=== PATIENT | male | born 1935 | race Caucasian/White ===

== ENCOUNTER 2017-10-18 17:20 | Inpatient (IN) ==
[2017-10-18 18:32] LABS: Basophils % 0.3 % (0.0-0.8); Eosinophils # 0.1 10*3/uL (0.0-0.87); Eosinophils % 0.8 % (0.00-10.9); Hematocrit 34.1 VOL% (42.0-52.0); Hemoglobin 10.4 GM/DL (14.0-18.0); Immature Granulocytes % 0.4 %; Immature Granulocytes Absolute 0.05 #; Lymphocytes % 8.4 % (21.2-54.2); Mean Corpuscular HGB Conc 30.5 GM/DL (32-36); Mean Corpuscular Hemoglobin 26 PG (27-34); Mean Corpuscular Volume 84.6 FL (87-102); Mean Platelet Volume 10.3 FL (9.6-12.0); Monocytes # 0.8 10*3/uL (0.11-0.8); Monocytes % 6.5 % (1.7-12.7); Neutrophils % 83.6 % (38.7-73.9); Platelet Count 346 T/CUMM (130-400); Red Blood Count 4.03 MC/CUMM (3.8-5.5); Red Cell Distribution Width 20.1 % (9.3-17.3); White Blood Count 11.9 T/CUMM (4-12)
[2017-10-18 18:41] LABS: Ammonia 23 UMOL/L (11-32)
[2017-10-18 18:43] LABS: Lactic Acid 1.9 MMOL/L (0.4-2.0)
[2017-10-18 18:45] LABS: Alanine Aminotransferase 16 U/L (16-61); Albumin 3.2 G/DL (3.4-5.0); Alkaline Phosphatase 106 U/L (45-117); Aspartate Amino Transferase 15 U/L (0-37); Blood Urea Nitrogen 27 MG/DL (7-18); Calcium 8.3 MG/DL (8.5-10.1); Glucose 116 MG/DL (74-106); Magnesium 2.5 MG/DL (1.8-2.4); Osmolality,Calculated 284.4 MOS/KG (273-304); Potassium 4.4 MMOL/L (3.5-5.1); Sodium 140 MMOL/L (136-145); Total Protein 6.6 G/DL (6.4-8.3); Troponin I Only < 0.015 NG/ML (0.00-0.045)
[2017-10-18] MEDS ORDERED: cefTRIAXone 1,000 MG in SODIUM CHLORIDE 0.9% 100 ML IV STA (18:53)
[2017-10-18] MEDS ORDERED: ONDANSETRON 4 MG/2 ML VIAL IV STA (18:53)
[2017-10-18] MEDS ORDERED: FUROSEMIDE 100 MG/10 ML VIAL IV STA (18:53)
[2017-10-18] MEDS ORDERED: SODIUM CHLORIDE 0.9% 500 ML IV STA (18:53)
[2017-10-18] MEDS ORDERED: methylPREDNISolone SOD SUC 125 MG/2 ML VIAL IV STA (18:53)
[2017-10-18] MEDS ORDERED: ALBUTEROL 2.5 MG/3 ML NEB RESP TX SCH (19:00)
[2017-10-18] MEDS ORDERED: ONDANSETRON 4 MG/2 ML VIAL ONE (19:04)
[2017-10-18] MEDS ORDERED: cefTRIAXone 1,000 MG VIAL ONE (19:04)
[2017-10-18] MEDS ORDERED: FUROSEMIDE 40 MG/4 ML VIAL ONE (19:04)
[2017-10-18] MEDS ORDERED: methylPREDNISolone SOD SUC 125 MG/2 ML VIAL ONE (19:05)
[2017-10-18] MEDS ORDERED: SODIUM CHLORIDE 0.9% 100 ML IV ONE (19:05)
[2017-10-18 19:37] LABS: ABG Base Excess -1.4 MMOL/L (-2.5-2.5); ABG HCO3 23.3 MMOL/L (20-26); ABG Oxygen Saturation 97.3 % (95-100); ABG PCO2 36.9 MM HG (35-48); ABG PH 7.403 (7.35-7.45); ABG TCO2 20.5 MMOL/L (23-27)
[2017-10-18] MEDS ORDERED: MORPHINE 2 MG/1 ML SYRINGE IV PRN (20:03)
[2017-10-18] MEDS ORDERED: ACETAMINOPHEN 325 MG TABLET PO PRN (20:03)
[2017-10-18] MEDS ORDERED: ONDANSETRON 4 MG/2 ML VIAL IV PRN (20:03)
[2017-10-18] MEDS: SODIUM CHLORIDE 0.9% 1,000 ML IV SCH (20:31)
[2017-10-18] MEDS: APIXABAN 5 MG TABLET PO SCH (20:31)
[2017-10-18] MEDS: CLORAZEPATE 3.75 MG TABLET PO SCH (20:32)
[2017-10-18] MEDS: DOCUSATE SODIUM 100 MG CAPSULE PO SCH (20:32)
[2017-10-18] MEDS ORDERED: LEVOFLOXACIN INJ 500 MG in PREMIX 1 EACH IV ONE (21:00)
[2017-10-18] MEDS: ALBUTEROL/IPRATROPIUM 3 ML NEB RESP TX PRN (21:28)
[2017-10-18 22:33] LABS: Troponin I Only < 0.015 NG/ML (0.00-0.045)
[2017-10-19] MEDS: ALBUTEROL/IPRATROPIUM 3 ML NEB RESP TX PRN ×2 (00:31→03:19)
[2017-10-19] MEDS: methylPREDNISolone SOD SUC 40 MG/1 ML VIAL IV SCH ×3 (03:56→21:14)
[2017-10-19 05:10] LABS: Hematocrit 30.5 VOL% (42.0-52.0); Hemoglobin 8.9 GM/DL (14.0-18.0); Immature Granulocytes % 0.6 %; Immature Granulocytes Absolute 0.05 #; Lymphocytes # 0.3 10*3/uL (1.4-4.0); Lymphocytes % 4.2 % (21.2-54.2); Mean Corpuscular HGB Conc 29.2 GM/DL (32-36); Mean Corpuscular Hemoglobin 25 PG (27-34); Mean Corpuscular Volume 86.9 FL (87-102); Monocytes # 0.1 10*3/uL (0.11-0.8); Monocytes % 1.2 % (1.7-12.7); Neutrophils # 7.6 10*3/uL (1.4-7.4); Platelet Count 287 T/CUMM (130-400); Red Blood Count 3.51 MC/CUMM (3.8-5.5); Red Cell Distribution Width 19.8 % (9.3-17.3); White Blood Count 8.1 T/CUMM (4-12)
[2017-10-19 05:45] LABS: Albumin 2.5 G/DL (3.4-5.0); Bilirubin,Total 1.2 MG/DL (0.2-1.0); Calcium 7.9 MG/DL (8.5-10.1); Magnesium 2.3 MG/DL (1.8-2.4); Osmolality,Calculated 288.4 MOS/KG (273-304); Potassium 4.3 MMOL/L (3.5-5.1); Total Protein 5.8 G/DL (6.4-8.3)
[2017-10-19 05:50] LABS: Giant Platelets Few; Hypochromasia 1+; Lymphocytes 4 % (20-55); Ovalocytes Slight; Platelet Estimate Adequate; Segmented Neutrophils 95 % (50-85); Total Cells Counted 100
[2017-10-19 05:51] LABS: Microcytosis Slight
[2017-10-19] MEDS: ALBUTEROL/IPRATROPIUM 3 ML NEB RESP TX SCH ×3 (07:50→19:09)
[2017-10-19] MEDS ORDERED: NON-FORMULARY MEDICATION (Umeclidinium Brm/Vilanterol Tr [Anoro Ellipta] 1 PUFF) INH SCH (09:00)
[2017-10-19] MEDS: DOCUSATE SODIUM 100 MG CAPSULE PO SCH ×2 (10:36→21:13)
[2017-10-19] MEDS: ASPIRIN EC 81 MG TABLET PO SCH (10:36)
[2017-10-19] MEDS: VERAPAMIL SR 240 MG TABLET PO SCH (10:37)
[2017-10-19] MEDS: PANTOPRAZOLE 40 MG TABLET PO SCH (10:37)
[2017-10-19] MEDS: metOLazone 5 MG TABLET PO SCH (10:37)
[2017-10-19] MEDS: APIXABAN 5 MG TABLET PO SCH ×2 (10:38→21:14)
[2017-10-19] MEDS: FERROUS SULFATE 325 MG TABLET PO SCH (10:38)
[2017-10-19] MEDS: CLORAZEPATE 3.75 MG TABLET PO SCH ×2 (10:38→21:14)
[2017-10-19] MEDS: FUROSEMIDE 20 MG TABLET PO SCH (10:38)
[2017-10-19] MEDS: FUROSEMIDE 20 MG/2 ML VIAL IV SCH ×2 (10:39→16:04)
[2017-10-19] MEDS ORDERED: TUBERCULIN SKIN TEST 0.1 ML SYRINGE INTRADERM ONE (15:02)
[2017-10-19] MEDS: LEVOFLOXACIN INJ 250 MG in PREMIX 1 EACH IV SCH (21:18)
[2017-10-19] MEDS: SODIUM CHLORIDE 0.9% 1,000 ML IV SCH (21:21)
[2017-10-20] MEDS: cefTRIAXone 1,000 MG in SYRINGE 1 EACH IV SCH ×2 (00:01→19:25)
[2017-10-20] MEDS: ALBUTEROL/IPRATROPIUM 3 ML NEB RESP TX SCH ×4 (01:25→21:24)
[2017-10-20] MEDS: methylPREDNISolone SOD SUC 40 MG/1 ML VIAL IV SCH ×3 (04:14→23:02)
[2017-10-20 04:32] LABS: ABG HCO3 26.8 MMOL/L (20-26); ABG Oxygen Saturation 92.4 % (95-100); ABG PCO2 42.7 MM HG (35-48); ABG PH 7.415 (7.35-7.45); ABG PO2 69.9 MM HG (80-95); ABG TCO2 28.1 MMOL/L (23-27); Allen Test Positive
[2017-10-20 05:06] LABS: Basophils % 0.1 % (0.0-0.8); Hematocrit 31.4 VOL% (42.0-52.0); Hemoglobin 9.2 GM/DL (14.0-18.0); Immature Granulocytes Absolute 0.14 #; Lymphocytes # 0.4 10*3/uL (1.4-4.0); Lymphocytes % 2.9 % (21.2-54.2); Mean Corpuscular HGB Conc 29.3 GM/DL (32-36); Mean Corpuscular Hemoglobin 25 PG (27-34); Mean Platelet Volume 9.9 FL (9.6-12.0); Monocytes # 0.3 10*3/uL (0.11-0.8); Monocytes % 2.4 % (1.7-12.7); Neutrophils % 93.6 % (38.7-73.9); Platelet Count 324 T/CUMM (130-400); Red Blood Count 3.65 MC/CUMM (3.8-5.5); Red Cell Distribution Width 19.2 % (9.3-17.3); White Blood Count 13.8 T/CUMM (4-12)
[2017-10-20 05:40] LABS: Calcium 8.3 MG/DL (8.5-10.1); Magnesium 2.3 MG/DL (1.8-2.4); Osmolality,Calculated 290.5 MOS/KG (273-304); Potassium 3.6 MMOL/L (3.5-5.1)
[2017-10-20 08:05] LABS: Lymphocytes 2 % (20-55); Segmented Neutrophils 94 % (50-85); Total Cells Counted 100
[2017-10-20 08:06] LABS: Hypochromasia 1+
[2017-10-20 08:08] LABS: Anisocytosis 1+; Microcytosis 1+; Platelet Estimate Normal
[2017-10-20] MEDS: APIXABAN 5 MG TABLET PO SCH ×2 (10:04→22:03)
[2017-10-20] MEDS: VERAPAMIL SR 240 MG TABLET PO SCH (10:04)
[2017-10-20] MEDS: CLORAZEPATE 3.75 MG TABLET PO SCH ×2 (10:05→22:03)
[2017-10-20] MEDS: metOLazone 5 MG TABLET PO SCH (10:05)
[2017-10-20] MEDS: FERROUS SULFATE 325 MG TABLET PO SCH (10:06)
[2017-10-20] MEDS: DOCUSATE SODIUM 100 MG CAPSULE PO SCH ×2 (10:06→22:03)
[2017-10-20] MEDS: ASPIRIN EC 81 MG TABLET PO SCH (10:06)
[2017-10-20] MEDS: PANTOPRAZOLE 40 MG TABLET PO SCH (10:06)
[2017-10-20] MEDS: FUROSEMIDE 20 MG/2 ML VIAL IV SCH (10:07)
[2017-10-20] MEDS: SODIUM CHLORIDE 0.9% 1,000 ML IV SCH (14:54)
[2017-10-20] MEDS: FUROSEMIDE 20 MG TABLET PO SCH (14:54)
[2017-10-20] MEDS: FUROSEMIDE 40 MG/4 ML VIAL IV SCH (18:32)
[2017-10-20] MEDS: LEVOFLOXACIN INJ 250 MG in PREMIX 1 EACH IV SCH (22:04)
[2017-10-21] MEDS: ALBUTEROL/IPRATROPIUM 3 ML NEB RESP TX SCH ×4 (04:20→19:26)
[2017-10-21 04:41] LABS: Basophils % 0.1 % (0.0-0.8); Hematocrit 31.4 VOL% (42.0-52.0); Hemoglobin 9.7 GM/DL (14.0-18.0); Immature Granulocytes % 0.8 %; Immature Granulocytes Absolute 0.12 #; Lymphocytes # 0.4 10*3/uL (1.4-4.0); Lymphocytes % 2.3 % (21.2-54.2); Mean Corpuscular HGB Conc 30.9 GM/DL (32-36); Mean Corpuscular Hemoglobin 26 PG (27-34); Mean Corpuscular Volume 82.6 FL (87-102); Mean Platelet Volume 9.9 FL (9.6-12.0); Monocytes # 0.3 10*3/uL (0.11-0.8); Monocytes % 2.1 % (1.7-12.7); NRBC # 0.02 10*3/uL; Neutrophils # 14.7 10*3/uL (1.4-7.4); Neutrophils % 94.7 % (38.7-73.9); Platelet Count 407 T/CUMM (130-400); Red Cell Distribution Width 19.3 % (9.3-17.3); White Blood Count 15.5 T/CUMM (4-12)
[2017-10-21 05:40] LABS: Elliptocytes Few; Hypochromasia 1+; Lymphocytes 1 % (20-55); Microcytosis 1+; Segmented Neutrophils 97 % (50-85); Target Cells Slight; Total Cells Counted 100
[2017-10-21] MEDS: APIXABAN 5 MG TABLET PO SCH ×2 (10:19→21:45)
[2017-10-21] MEDS: FERROUS SULFATE 325 MG TABLET PO SCH (10:19)
[2017-10-21] MEDS: metOLazone 5 MG TABLET PO SCH (10:19)
[2017-10-21] MEDS: DOCUSATE SODIUM 100 MG CAPSULE PO SCH ×2 (10:19→21:45)
[2017-10-21] MEDS: VERAPAMIL SR 240 MG TABLET PO SCH (10:19)
[2017-10-21] MEDS: PANTOPRAZOLE 40 MG TABLET PO SCH (10:19)
[2017-10-21] MEDS: ASPIRIN EC 81 MG TABLET PO SCH (10:19)
[2017-10-21] MEDS: CLORAZEPATE 3.75 MG TABLET PO SCH ×2 (10:20→21:45)
[2017-10-21] MEDS: FUROSEMIDE 40 MG/4 ML VIAL IV SCH ×2 (10:21→16:50)
[2017-10-21] MEDS: methylPREDNISolone SOD SUC 40 MG/1 ML VIAL IV SCH ×2 (10:21→16:50)
[2017-10-21] MEDS: METOPROLOL TARTRATE 25 MG TABLET PO SCH ×2 (12:39→21:46)
[2017-10-21] MEDS: cefTRIAXone 1,000 MG in SYRINGE 1 EACH IV SCH (18:31)
[2017-10-21] MEDS: LEVOFLOXACIN INJ 250 MG in PREMIX 1 EACH IV SCH (21:46)
[2017-10-22] MEDS: ALBUTEROL/IPRATROPIUM 3 ML NEB RESP TX SCH ×4 (00:47→20:35)
[2017-10-22] MEDS: methylPREDNISolone SOD SUC 40 MG/1 ML VIAL IV SCH ×4 (01:31→21:43)
[2017-10-22 04:58] LABS: Basophils % 0.1 % (0.0-0.8); Hematocrit 35.5 VOL% (42.0-52.0); Hemoglobin 10.7 GM/DL (14.0-18.0); Immature Granulocytes % 0.7 %; Immature Granulocytes Absolute 0.12 #; Lymphocytes # 0.6 10*3/uL (1.4-4.0); Lymphocytes % 3.5 % (21.2-54.2); Mean Corpuscular HGB Conc 30.1 GM/DL (32-36); Mean Corpuscular Hemoglobin 25 PG (27-34); Mean Corpuscular Volume 82.9 FL (87-102); Monocytes # 0.4 10*3/uL (0.11-0.8); NRBC # 0.03 10*3/uL; Neutrophils # 16.1 10*3/uL (1.4-7.4); Neutrophils % 93.7 % (38.7-73.9); Platelet Count 492 T/CUMM (130-400); Red Blood Count 4.28 MC/CUMM (3.8-5.5); White Blood Count 17.2 T/CUMM (4-12)
[2017-10-22 05:30] LABS: Giant Platelets Few; Hypochromasia 1+; Lymphocytes 3 % (20-55); Microcytosis Slight; Platelet Estimate Adequate; Segmented Neutrophils 95 % (50-85); Total Cells Counted 100
[2017-10-22 05:37] LABS: Calcium 8.6 MG/DL (8.5-10.1); Osmolality,Calculated 294.8 MOS/KG (273-304); Potassium 3.5 MMOL/L (3.5-5.1)
[2017-10-22] MEDS: CLORAZEPATE 3.75 MG TABLET PO SCH ×2 (08:37→21:44)
[2017-10-22] MEDS: PANTOPRAZOLE 40 MG TABLET PO SCH (08:38)
[2017-10-22] MEDS: DOCUSATE SODIUM 100 MG CAPSULE PO SCH ×2 (08:38→21:44)
[2017-10-22] MEDS: APIXABAN 5 MG TABLET PO SCH ×2 (08:38→21:44)
[2017-10-22] MEDS: FERROUS SULFATE 325 MG TABLET PO SCH (08:38)
[2017-10-22] MEDS: METOPROLOL TARTRATE 25 MG TABLET PO SCH ×2 (08:38→21:44)
[2017-10-22] MEDS: ASPIRIN EC 81 MG TABLET PO SCH (08:40)
[2017-10-22] MEDS: VERAPAMIL SR 240 MG TABLET PO SCH (08:40)
[2017-10-22] MEDS: FUROSEMIDE 40 MG/4 ML VIAL IV SCH ×2 (08:40→16:50)
[2017-10-22] MEDS: LEVOFLOXACIN INJ 250 MG in PREMIX 1 EACH IV SCH (21:43)
[2017-10-22] MEDS: cefTRIAXone 1,000 MG in SYRINGE 1 EACH IV SCH (21:43)
[2017-10-23] MEDS: ALBUTEROL/IPRATROPIUM 3 ML NEB RESP TX SCH ×4 (01:34→19:34)
[2017-10-23 05:29] LABS: Calcium 9.4 MG/DL (8.5-10.1); Magnesium 2.6 MG/DL (1.8-2.4); Osmolality,Calculated 301.5 MOS/KG (273-304); Potassium 3.7 MMOL/L (3.5-5.1)
[2017-10-23] MEDS: PANTOPRAZOLE 40 MG TABLET PO SCH (08:36)
[2017-10-23] MEDS: FUROSEMIDE 40 MG/4 ML VIAL IV SCH (08:36)
[2017-10-23] MEDS: VERAPAMIL SR 240 MG TABLET PO SCH (08:36)
[2017-10-23] MEDS: APIXABAN 5 MG TABLET PO SCH ×2 (08:36→20:48)
[2017-10-23] MEDS: FERROUS SULFATE 325 MG TABLET PO SCH (08:36)
[2017-10-23] MEDS: CLORAZEPATE 3.75 MG TABLET PO SCH ×2 (08:36→20:48)
[2017-10-23] MEDS: METOPROLOL TARTRATE 25 MG TABLET PO SCH (08:36)
[2017-10-23] MEDS: ASPIRIN EC 81 MG TABLET PO SCH (08:36)
[2017-10-23] MEDS: DOCUSATE SODIUM 100 MG CAPSULE PO SCH ×2 (08:45→20:48)
[2017-10-23] MEDS: cefTRIAXone 1,000 MG in SYRINGE 1 EACH IV SCH (20:48)
[2017-10-23] MEDS: METOPROLOL SUCCINATE XL 25 MG TABLET PO SCH (20:48)
[2017-10-23] MEDS: LEVOFLOXACIN INJ 250 MG in PREMIX 1 EACH IV SCH (20:54)
[2017-10-24] MEDS: ALBUTEROL/IPRATROPIUM 3 ML NEB RESP TX SCH ×4 (00:12→19:44)
[2017-10-24] MEDS: CLORAZEPATE 3.75 MG TABLET PO SCH ×3 (08:43→22:00)
[2017-10-24] MEDS: APIXABAN 5 MG TABLET PO SCH ×2 (08:43→22:00)
[2017-10-24] MEDS: FERROUS SULFATE 325 MG TABLET PO SCH (08:44)
[2017-10-24] MEDS: VERAPAMIL SR 240 MG TABLET PO SCH (08:44)
[2017-10-24] MEDS: DOCUSATE SODIUM 100 MG CAPSULE PO SCH ×2 (08:44→22:00)
[2017-10-24] MEDS: METOPROLOL SUCCINATE XL 25 MG TABLET PO SCH ×2 (08:44→22:00)
[2017-10-24] MEDS: PANTOPRAZOLE 40 MG TABLET PO SCH (08:45)
[2017-10-24] MEDS: ASPIRIN EC 81 MG TABLET PO SCH (08:45)
[2017-10-24] MEDS: FUROSEMIDE 40 MG/4 ML VIAL IV SCH (09:15)
[2017-10-24 12:52] LABS: Calcium 9.4 MG/DL (8.5-10.1); Magnesium 2.7 MG/DL (1.8-2.4); Osmolality,Calculated 295.2 MOS/KG (273-304)
[2017-10-24] MEDS: TERAZOSIN 1 MG CAPSULE PO SCH (13:21)
[2017-10-24] MEDS: POTASSIUM CHLORIDE 20 MEQ TABLET PO SCH ×2 (17:19→22:00)
[2017-10-24 19:43] LABS: Troponin I Only < 0.015 NG/ML (0.00-0.045)
[2017-10-24] MEDS: cefTRIAXone 1,000 MG in SYRINGE 1 EACH IV SCH (22:00)
[2017-10-24] MEDS: SIMVASTATIN 10 MG TABLET PO SCH (22:00)
[2017-10-24] MEDS: LEVOFLOXACIN INJ 250 MG in PREMIX 1 EACH IV SCH (22:01)
[2017-10-25] MEDS: ALBUTEROL/IPRATROPIUM 3 ML NEB RESP TX SCH ×4 (00:06→19:17)
[2017-10-25 05:04] LABS: Basophils % 0.1 % (0.0-0.8); Eosinophils # 0.5 10*3/uL (0.0-0.87); Eosinophils % 2.8 % (0.00-10.9); Hematocrit 36.6 VOL% (42.0-52.0); Hemoglobin 11.7 GM/DL (14.0-18.0); Immature Granulocytes % 0.9 %; Immature Granulocytes Absolute 0.15 #; Lymphocytes # 1.3 10*3/uL (1.4-4.0); Lymphocytes % 7.6 % (21.2-54.2); Mean Corpuscular Hemoglobin 26 PG (27-34); Mean Corpuscular Volume 79.9 FL (87-102); Mean Platelet Volume 9.9 FL (9.6-12.0); Monocytes # 1.2 10*3/uL (0.11-0.8); Monocytes % 7.1 % (1.7-12.7); Neutrophils # 13.5 10*3/uL (1.4-7.4); Neutrophils % 81.5 % (38.7-73.9); Platelet Count 456 T/CUMM (130-400); Red Blood Count 4.58 MC/CUMM (3.8-5.5); Red Cell Distribution Width 18.7 % (9.3-17.3); White Blood Count 16.5 T/CUMM (4-12)
[2017-10-25 05:27] LABS: Calcium 8.4 MG/DL (8.5-10.1); Magnesium 2.7 MG/DL (1.8-2.4); Osmolality,Calculated 302.1 MOS/KG (273-304); Potassium 3.7 MMOL/L (3.5-5.1)
[2017-10-25] MEDS: FERROUS SULFATE 325 MG TABLET PO SCH (09:54)
[2017-10-25] MEDS: METOPROLOL SUCCINATE XL 25 MG TABLET PO SCH (09:54)
[2017-10-25] MEDS: DOCUSATE SODIUM 100 MG CAPSULE PO SCH ×2 (09:55→22:15)
[2017-10-25] MEDS: TERAZOSIN 1 MG CAPSULE PO SCH (09:55)
[2017-10-25] MEDS: CLORAZEPATE 3.75 MG TABLET PO SCH ×2 (09:55→22:16)
[2017-10-25] MEDS: POTASSIUM CHLORIDE 20 MEQ TABLET PO SCH ×3 (09:55→22:15)
[2017-10-25] MEDS: APIXABAN 5 MG TABLET PO SCH ×2 (09:56→22:15)
[2017-10-25] MEDS: PARoxetine 20 MG TABLET PO SCH (09:56)
[2017-10-25] MEDS: PANTOPRAZOLE 40 MG TABLET PO SCH (09:56)
[2017-10-25] MEDS: ASPIRIN EC 81 MG TABLET PO SCH (09:56)
[2017-10-25] MEDS: VERAPAMIL SR 240 MG TABLET PO SCH (09:58)
[2017-10-25] MEDS: FUROSEMIDE 40 MG/4 ML VIAL IV SCH (09:59)
[2017-10-25] MEDS: METOPROLOL SUCCINATE XL 50 MG TABLET PO SCH ×2 (12:00→22:17)
[2017-10-25] MEDS: cefTRIAXone 1,000 MG in SYRINGE 1 EACH IV SCH (22:14)
[2017-10-25] MEDS: SIMVASTATIN 10 MG TABLET PO SCH (22:16)
[2017-10-25] MEDS: LEVOFLOXACIN INJ 250 MG in PREMIX 1 EACH IV SCH (22:16)
[2017-10-26] MEDS: ALBUTEROL/IPRATROPIUM 3 ML NEB RESP TX SCH ×2 (01:19→07:23)
[2017-10-26] MEDS: APIXABAN 5 MG TABLET PO SCH (09:52)
[2017-10-26] MEDS: CLORAZEPATE 3.75 MG TABLET PO SCH (09:52)
[2017-10-26] MEDS: POTASSIUM CHLORIDE 20 MEQ TABLET PO SCH (09:52)
[2017-10-26] MEDS: DOCUSATE SODIUM 100 MG CAPSULE PO SCH (09:52)
[2017-10-26] MEDS: PANTOPRAZOLE 40 MG TABLET PO SCH (09:52)
[2017-10-26] MEDS: ASPIRIN EC 81 MG TABLET PO SCH (09:52)
[2017-10-26] MEDS: TERAZOSIN 1 MG CAPSULE PO SCH (09:52)
[2017-10-26] MEDS: METOPROLOL SUCCINATE XL 50 MG TABLET PO SCH (09:52)
[2017-10-26] MEDS: PARoxetine 20 MG TABLET PO SCH (09:52)
[2017-10-26] MEDS: FERROUS SULFATE 325 MG TABLET PO SCH (09:52)
[2017-10-26] MEDS: FUROSEMIDE 40 MG/4 ML VIAL IV SCH (09:54)
[2017-10-26] MEDS: VERAPAMIL SR 240 MG TABLET PO SCH (10:21)
[2017-10-26 12:06] VITALS: BP 106/63
[2017-10-27] MEDS ORDERED: FUROSEMIDE 40 MG TABLET PO SCH (09:00)
[2017-10-27] MEDS ORDERED: LEVOFLOXACIN 250 MG TABLET PO SCH (09:00)
== END 2017-10-26 13:15 | disposition swing bed (61) | DRG 291 ==
LOC: N.ED 17:20 → N.EDINP 19:37 → N.ICU 20:00 → N.TELEN 10-19 19:39
PROVIDERS: ADMIT Family Medicine; ATTEND Family Medicine

== ENCOUNTER 2017-11-03 18:53 | Inpatient (IN) ==
[2017-11-03 19:43] LABS: Basophils # 0.1 10*3/uL (0.0-0.2); Basophils % 0.3 % (0.0-0.8); Eosinophils # 0.2 10*3/uL (0.0-0.87); Eosinophils % 1.1 % (0.00-10.9); Hematocrit 30.5 VOL% (42.0-52.0); Hemoglobin 9.3 GM/DL (14.0-18.0); Immature Granulocytes % 2.1 %; Immature Granulocytes Absolute 0.36 #; Lymphocytes # 1.1 10*3/uL (1.4-4.0); Lymphocytes % 6.4 % (21.2-54.2); Mean Corpuscular HGB Conc 30.5 GM/DL (32-36); Mean Corpuscular Hemoglobin 26 PG (27-34); Mean Corpuscular Volume 84.3 FL (87-102); Mean Platelet Volume 9.8 FL (9.6-12.0); Monocytes # 1.1 10*3/uL (0.11-0.8); Monocytes % 6.2 % (1.7-12.7); NRBC # 0.02 10*3/uL; Neutrophils # 14.7 10*3/uL (1.4-7.4); Neutrophils % 83.9 % (38.7-73.9); Platelet Count 505 T/CUMM (130-400); Red Blood Count 3.62 MC/CUMM (3.8-5.5); Red Cell Distribution Width 18.8 % (9.3-17.3); White Blood Count 17.6 T/CUMM (4-12)
[2017-11-03 19:48] LABS: Calcium 7.9 MG/DL (8.5-10.1); Osmolality,Calculated 291.5 MOS/KG (273-304); Potassium 5.5 MMOL/L (3.5-5.1)
[2017-11-03 19:53] LABS: Troponin I Only < 0.015 NG/ML (0.00-0.045)
[2017-11-03 19:57] LABS: ABG Base Excess -2.8 MMOL/L (-2.5-2.5); ABG HCO3 19.7 MMOL/L (20-26); ABG Oxygen Saturation 97.7 % (95-100); ABG PCO2 26.7 MM HG (35-48); ABG PH 7.486 (7.35-7.45); ABG PO2 104.2 MM HG (80-95); ABG TCO2 20.5 MMOL/L (23-27)
[2017-11-03 22:04] LABS: Apearance,Urine Slightly Hazy (Clear); Bilirubin,Urine Negative (Negative); Blood, Urine Negative (Negative); Glucose,Urine (UA) Negative (Negative); Hyaline Casts,Urine 35 /LPF (0-3); Ketones,Urine Negative (Negative); Mucus,Urine Occasional /LPF (Occasional); Nitrite,Urine Negative (Negative); Protein,Urine Negative; RBC,Urine 2 /HPF (0-4); Squamous Epithelial Cell,Urine Occasional /HPF (0-10); Urine Color Amber (Yellow); Urine Specific Gravity 1.017 (1.001-1.035); WBC,Urine 2 /HPF (0-6)
[2017-11-03] MEDS ORDERED: ONDANSETRON 4 MG/2 ML VIAL IV PRN (22:33)
[2017-11-03] MEDS ORDERED: ACETAMINOPHEN 325 MG TABLET PO PRN (22:33)
[2017-11-04] MEDS ORDERED: PANTOPRAZOLE 40 MG TABLET PO SCH (09:00)
[2017-11-04] MEDS: DOCUSATE SODIUM 100 MG CAPSULE PO SCH ×2 (09:27→21:06)
[2017-11-04] MEDS ORDERED: LEVOFLOXACIN INJ 500 MG in PREMIX 1 EACH IV ONE (12:00)
[2017-11-04] MEDS: APIXABAN 5 MG TABLET PO SCH ×2 (12:24→21:06)
[2017-11-04] MEDS: CLORAZEPATE 3.75 MG TABLET PO SCH ×2 (12:25→21:06)
[2017-11-04] MEDS: NYSTATIN 500,000 UNIT/5 ML UDCUP SWISH/SWAL SCH ×3 (12:25→21:06)
[2017-11-04] MEDS: SODIUM CHLORIDE 0.9% 1,000 ML IV SCH (12:25)
[2017-11-04] MEDS: METOPROLOL TARTRATE 50 MG TABLET PO SCH ×2 (12:25→21:06)
[2017-11-04] MEDS: ALBUTEROL 0.63 MG/3 ML NEB RESP TX SCH ×2 (13:42→18:58)
[2017-11-04] MEDS ORDERED: POTASSIUM CHLORIDE 20 MEQ TABLET PO SCH (15:00)
[2017-11-04] MEDS: SIMVASTATIN 10 MG TABLET PO SCH (21:06)
[2017-11-05] MEDS: ALBUTEROL 0.63 MG/3 ML NEB RESP TX SCH ×4 (00:45→19:00)
[2017-11-05] MEDS: SODIUM CHLORIDE 0.9% 1,000 ML IV SCH ×2 (02:29→15:01)
[2017-11-05 06:03] LABS: Basophils % 0.3 % (0.0-0.8); Eosinophils # 0.2 10*3/uL (0.0-0.87); Eosinophils % 1.7 % (0.00-10.9); Hematocrit 28.9 VOL% (42.0-52.0); Hemoglobin 8.9 GM/DL (14.0-18.0); Immature Granulocytes % 1.3 %; Immature Granulocytes Absolute 0.12 #; Lymphocytes # 0.6 10*3/uL (1.4-4.0); Lymphocytes % 6.7 % (21.2-54.2); Mean Corpuscular HGB Conc 30.8 GM/DL (32-36); Mean Corpuscular Hemoglobin 26 PG (27-34); Mean Corpuscular Volume 82.8 FL (87-102); Mean Platelet Volume 9.5 FL (9.6-12.0); Monocytes # 0.6 10*3/uL (0.11-0.8); Monocytes % 5.9 % (1.7-12.7); Neutrophils # 7.9 10*3/uL (1.4-7.4); Neutrophils % 84.1 % (38.7-73.9); Platelet Count 440 T/CUMM (130-400); Red Blood Count 3.49 MC/CUMM (3.8-5.5); Red Cell Distribution Width 18.6 % (9.3-17.3); White Blood Count 9.4 T/CUMM (4-12)
[2017-11-05 06:23] LABS: Calcium 7.8 MG/DL (8.5-10.1); Osmolality,Calculated 291.8 MOS/KG (273-304); Potassium 4.6 MMOL/L (3.5-5.1)
[2017-11-05] MEDS: PANTOPRAZOLE 40 MG TABLET PO SCH (06:43)
[2017-11-05] MEDS ORDERED: NF (Umeclidinium Brm/Vilanterol Tr [Anoro Ellipta] 1 PUFF) INH SCH (09:00)
[2017-11-05] MEDS: NYSTATIN 500,000 UNIT/5 ML UDCUP SWISH/SWAL SCH ×4 (09:38→20:34)
[2017-11-05] MEDS: METOPROLOL TARTRATE 50 MG TABLET PO SCH ×2 (09:39→20:26)
[2017-11-05] MEDS: FERROUS SULFATE 325 MG TABLET PO SCH (09:39)
[2017-11-05] MEDS: ASPIRIN EC 81 MG TABLET PO SCH (09:39)
[2017-11-05] MEDS: TERAZOSIN 1 MG CAPSULE PO SCH (09:39)
[2017-11-05] MEDS: VERAPAMIL SR 240 MG TABLET PO SCH (09:39)
[2017-11-05] MEDS: DOCUSATE SODIUM 100 MG CAPSULE PO SCH ×2 (09:44→20:26)
[2017-11-05] MEDS: MULTIVITAMIN (CENTRUM) TABLET PO SCH (09:45)
[2017-11-05] MEDS: CLORAZEPATE 3.75 MG TABLET PO SCH ×2 (09:45→20:26)
[2017-11-05] MEDS: APIXABAN 5 MG TABLET PO SCH ×2 (09:45→20:26)
[2017-11-05] MEDS: PARoxetine 20 MG TABLET PO SCH (09:45)
[2017-11-05] MEDS: FUROSEMIDE 40 MG TABLET PO SCH (09:45)
[2017-11-05] MEDS: LEVOFLOXACIN INJ 250 MG in PREMIX 1 EACH IV SCH (11:48)
[2017-11-05] MEDS ORDERED: ALBUTEROL 0.63 MG/3 ML NEB RESP TX SCH (16:26)
[2017-11-05] MEDS: ALBUTEROL 0.63 MG/3 ML NEB RESP TX PRN (17:15)
[2017-11-05] MEDS: SIMVASTATIN 10 MG TABLET PO SCH (20:26)
[2017-11-05] MEDS: ZINC OXIDE PASTE 113 GM TUBE TOP SCH (20:35)
[2017-11-06] MEDS: ALBUTEROL 0.63 MG/3 ML NEB RESP TX SCH ×4 (00:40→19:36)
[2017-11-06] MEDS: PANTOPRAZOLE 40 MG TABLET PO SCH (06:58)
[2017-11-06] MEDS: NYSTATIN 500,000 UNIT/5 ML UDCUP SWISH/SWAL SCH ×4 (08:41→20:52)
[2017-11-06] MEDS: CLORAZEPATE 3.75 MG TABLET PO SCH ×2 (08:42→20:52)
[2017-11-06] MEDS: APIXABAN 5 MG TABLET PO SCH ×2 (08:42→20:53)
[2017-11-06] MEDS: METOPROLOL TARTRATE 50 MG TABLET PO SCH (08:42)
[2017-11-06] MEDS: MULTIVITAMIN (CENTRUM) TABLET PO SCH (08:42)
[2017-11-06] MEDS: ZINC OXIDE PASTE 113 GM TUBE TOP SCH ×2 (08:42→20:55)
[2017-11-06] MEDS: DOCUSATE SODIUM 100 MG CAPSULE PO SCH ×2 (08:42→20:52)
[2017-11-06] MEDS: FUROSEMIDE 40 MG TABLET PO SCH (08:42)
[2017-11-06] MEDS: PARoxetine 20 MG TABLET PO SCH (08:42)
[2017-11-06] MEDS: VERAPAMIL SR 240 MG TABLET PO SCH (08:42)
[2017-11-06] MEDS: metOLazone 2.5 MG TABLET PO SCH (08:42)
[2017-11-06] MEDS: FERROUS SULFATE 325 MG TABLET PO SCH (08:42)
[2017-11-06] MEDS: TERAZOSIN 1 MG CAPSULE PO SCH (08:42)
[2017-11-06] MEDS: ASPIRIN EC 81 MG TABLET PO SCH (08:42)
[2017-11-06 11:50] LABS: Eosinophils,Pleural Fluid 15 %; Lymphocytes,Pleural Fluid 53 %; Monocytes,Pleural Fluid 5 %; Neutrophils,Pleural Fluid 27 %
[2017-11-06 11:52] LABS: RBC,Pleural Fluid > 100000 T/CUMM
[2017-11-06] MEDS ORDERED: KETOROLAC 15 MG/1 ML VIAL IV PRN (12:00)
[2017-11-06 12:29] LABS: Total Protein,Body Fluid 3.1 G/DL
[2017-11-06] MEDS: LEVOFLOXACIN INJ 250 MG in PREMIX 1 EACH IV SCH (12:39)
[2017-11-06] MEDS: COLCHICINE 0.6 MG TABLET PO SCH ×2 (12:39→20:52)
[2017-11-06] MEDS: METOPROLOL TARTRATE 25 MG TABLET PO SCH (20:53)
[2017-11-06] MEDS: SIMVASTATIN 10 MG TABLET PO SCH (20:53)
[2017-11-07] MEDS: ALBUTEROL 0.63 MG/3 ML NEB RESP TX SCH ×5 (00:17→19:51)
[2017-11-07] MEDS: PANTOPRAZOLE 40 MG TABLET PO SCH (06:02)
[2017-11-07 06:39] LABS: Basophils % 0.4 % (0.0-0.8); Eosinophils # 0.2 10*3/uL (0.0-0.87); Hematocrit 28.4 VOL% (42.0-52.0); Hemoglobin 8.5 GM/DL (14.0-18.0); Immature Granulocytes % 1.1 %; Lymphocytes # 0.9 10*3/uL (1.4-4.0); Lymphocytes % 9.6 % (21.2-54.2); Mean Corpuscular HGB Conc 29.9 GM/DL (32-36); Mean Corpuscular Hemoglobin 25 PG (27-34); Mean Corpuscular Volume 82.6 FL (87-102); Mean Platelet Volume 9.2 FL (9.6-12.0); Monocytes # 0.6 10*3/uL (0.11-0.8); Monocytes % 6.5 % (1.7-12.7); Neutrophils # 7.7 10*3/uL (1.4-7.4); Neutrophils % 80.4 % (38.7-73.9); Platelet Count 456 T/CUMM (130-400); Red Blood Count 3.44 MC/CUMM (3.8-5.5); Red Cell Distribution Width 18.4 % (9.3-17.3); White Blood Count 9.5 T/CUMM (4-12)
[2017-11-07 07:06] LABS: Calcium 7.9 MG/DL (8.5-10.1); Osmolality,Calculated 282.4 MOS/KG (273-304); Potassium 3.4 MMOL/L (3.5-5.1)
[2017-11-07 07:18] LABS: Risk Ratio 2.3; VLDL CHOLESTEROL 11.4 MG/DL
[2017-11-07] MEDS: ASPIRIN EC 81 MG TABLET PO SCH (09:12)
[2017-11-07] MEDS: NYSTATIN 500,000 UNIT/5 ML UDCUP SWISH/SWAL SCH ×4 (09:12→22:06)
[2017-11-07] MEDS: MULTIVITAMIN (CENTRUM) TABLET PO SCH (09:12)
[2017-11-07] MEDS: DOCUSATE SODIUM 100 MG CAPSULE PO SCH ×2 (09:12→22:02)
[2017-11-07] MEDS: PARoxetine 20 MG TABLET PO SCH (09:13)
[2017-11-07] MEDS: VERAPAMIL SR 240 MG TABLET PO SCH (09:13)
[2017-11-07] MEDS: metOLazone 2.5 MG TABLET PO SCH (09:13)
[2017-11-07] MEDS: FERROUS SULFATE 325 MG TABLET PO SCH (09:13)
[2017-11-07] MEDS: TERAZOSIN 1 MG CAPSULE PO SCH (09:13)
[2017-11-07] MEDS: COLCHICINE 0.6 MG TABLET PO SCH ×2 (09:13→22:02)
[2017-11-07] MEDS: FUROSEMIDE 40 MG TABLET PO SCH (09:13)
[2017-11-07] MEDS: METOPROLOL TARTRATE 25 MG TABLET PO SCH ×2 (09:13→22:02)
[2017-11-07] MEDS: CLORAZEPATE 3.75 MG TABLET PO SCH ×2 (09:13→22:02)
[2017-11-07] MEDS: APIXABAN 5 MG TABLET PO SCH ×2 (09:13→22:02)
[2017-11-07] MEDS: ZINC OXIDE PASTE 113 GM TUBE TOP SCH ×2 (09:14→22:06)
[2017-11-07] MEDS: LEVOFLOXACIN INJ 250 MG in PREMIX 1 EACH IV SCH (12:40)
[2017-11-07] MEDS ORDERED: POTASSIUM CHLORIDE 20 MEQ TABLET PO ONE (22:00)
[2017-11-07] MEDS: SIMVASTATIN 10 MG TABLET PO SCH (22:02)
[2017-11-08] MEDS: PANTOPRAZOLE 40 MG TABLET PO SCH (06:03)
[2017-11-08 06:46] LABS: Basophils % 0.3 % (0.0-0.8); Eosinophils # 0.2 10*3/uL (0.0-0.87); Eosinophils % 2.5 % (0.00-10.9); Hematocrit 30.5 VOL% (42.0-52.0); Hemoglobin 9.1 GM/DL (14.0-18.0); Immature Granulocytes % 0.9 %; Immature Granulocytes Absolute 0.08 #; Lymphocytes % 10.6 % (21.2-54.2); Mean Corpuscular HGB Conc 29.8 GM/DL (32-36); Mean Corpuscular Hemoglobin 24 PG (27-34); Mean Corpuscular Volume 81.6 FL (87-102); Mean Platelet Volume 9.7 FL (9.6-12.0); Monocytes # 0.6 10*3/uL (0.11-0.8); Monocytes % 6.2 % (1.7-12.7); Neutrophils # 7.2 10*3/uL (1.4-7.4); Neutrophils % 79.5 % (38.7-73.9); Platelet Count 524 T/CUMM (130-400); Red Blood Count 3.74 MC/CUMM (3.8-5.5)
[2017-11-08] MEDS: ALBUTEROL 0.63 MG/3 ML NEB RESP TX SCH ×3 (07:06→19:10)
[2017-11-08 07:26] LABS: Calcium 8.1 MG/DL (8.5-10.1); Osmolality,Calculated 283.5 MOS/KG (273-304); Potassium 3.5 MMOL/L (3.5-5.1)
[2017-11-08] MEDS: PARoxetine 20 MG TABLET PO SCH (10:17)
[2017-11-08] MEDS: APIXABAN 5 MG TABLET PO SCH ×2 (10:17→20:42)
[2017-11-08] MEDS: ZINC OXIDE PASTE 113 GM TUBE TOP SCH ×2 (10:17→20:42)
[2017-11-08] MEDS: FERROUS SULFATE 325 MG TABLET PO SCH (10:17)
[2017-11-08] MEDS: METOPROLOL TARTRATE 25 MG TABLET PO SCH ×2 (10:17→20:42)
[2017-11-08] MEDS: COLCHICINE 0.6 MG TABLET PO SCH ×2 (10:17→20:42)
[2017-11-08] MEDS: VERAPAMIL SR 240 MG TABLET PO SCH (10:17)
[2017-11-08] MEDS: metOLazone 2.5 MG TABLET PO SCH (10:17)
[2017-11-08] MEDS: FUROSEMIDE 40 MG TABLET PO SCH (10:17)
[2017-11-08] MEDS: ASPIRIN EC 81 MG TABLET PO SCH (10:18)
[2017-11-08] MEDS: MULTIVITAMIN (CENTRUM) TABLET PO SCH (10:18)
[2017-11-08] MEDS: CLORAZEPATE 3.75 MG TABLET PO SCH ×2 (10:18→20:42)
[2017-11-08] MEDS: NYSTATIN 500,000 UNIT/5 ML UDCUP SWISH/SWAL SCH ×4 (10:18→20:42)
[2017-11-08] MEDS: TERAZOSIN 1 MG CAPSULE PO SCH (10:18)
[2017-11-08] MEDS: DOCUSATE SODIUM 100 MG CAPSULE PO SCH ×2 (10:18→20:42)
[2017-11-08] MEDS: LEVOFLOXACIN INJ 250 MG in PREMIX 1 EACH IV SCH (12:12)
[2017-11-08] MEDS: SIMVASTATIN 10 MG TABLET PO SCH (20:41)
[2017-11-09] MEDS: ALBUTEROL 0.63 MG/3 ML NEB RESP TX SCH ×4 (00:09→20:14)
[2017-11-09] MEDS: PANTOPRAZOLE 40 MG TABLET PO SCH (06:32)
[2017-11-09 06:54] LABS: Basophils % 0.4 % (0.0-0.8); Eosinophils # 0.3 10*3/uL (0.0-0.87); Eosinophils % 3.3 % (0.00-10.9); Hematocrit 33.6 VOL% (42.0-52.0); Hemoglobin 10.4 GM/DL (14.0-18.0); Immature Granulocytes Absolute 0.08 #; Lymphocytes # 0.8 10*3/uL (1.4-4.0); Lymphocytes % 10.3 % (21.2-54.2); Mean Corpuscular Hemoglobin 25 PG (27-34); Mean Platelet Volume 9.9 FL (9.6-12.0); Monocytes # 0.5 10*3/uL (0.11-0.8); Monocytes % 6.5 % (1.7-12.7); Neutrophils # 6.3 10*3/uL (1.4-7.4); Neutrophils % 78.5 % (38.7-73.9); Platelet Count 555 T/CUMM (130-400); Red Cell Distribution Width 17.8 % (9.3-17.3)
[2017-11-09 07:26] LABS: Osmolality,Calculated 288.3 MOS/KG (273-304); Potassium 3.3 MMOL/L (3.5-5.1)
[2017-11-09] MEDS: DOCUSATE SODIUM 100 MG CAPSULE PO SCH ×2 (09:36→20:43)
[2017-11-09] MEDS: CLORAZEPATE 3.75 MG TABLET PO SCH ×2 (09:36→20:43)
[2017-11-09] MEDS: FUROSEMIDE 40 MG TABLET PO SCH (09:36)
[2017-11-09] MEDS: PARoxetine 20 MG TABLET PO SCH (09:36)
[2017-11-09] MEDS: metOLazone 2.5 MG TABLET PO SCH (09:36)
[2017-11-09] MEDS: FERROUS SULFATE 325 MG TABLET PO SCH (09:36)
[2017-11-09] MEDS: MULTIVITAMIN (CENTRUM) TABLET PO SCH (09:36)
[2017-11-09] MEDS: ASPIRIN EC 81 MG TABLET PO SCH (09:36)
[2017-11-09] MEDS: COLCHICINE 0.6 MG TABLET PO SCH ×2 (09:36→20:43)
[2017-11-09] MEDS: ZINC OXIDE PASTE 113 GM TUBE TOP SCH ×2 (09:37→20:50)
[2017-11-09] MEDS: TERAZOSIN 1 MG CAPSULE PO SCH (09:37)
[2017-11-09] MEDS: METOPROLOL TARTRATE 25 MG TABLET PO SCH ×2 (09:37→20:43)
[2017-11-09] MEDS: VERAPAMIL SR 240 MG TABLET PO SCH (09:37)
[2017-11-09] MEDS: NYSTATIN 500,000 UNIT/5 ML UDCUP SWISH/SWAL SCH ×4 (09:37→20:43)
[2017-11-09] MEDS: APIXABAN 5 MG TABLET PO SCH (10:14)
[2017-11-09] MEDS ORDERED: POTASSIUM CHLORIDE RIDER 20 MEQ in PREMIX 1 EACH IV PRN (13:10)
[2017-11-09] MEDS: LEVOFLOXACIN INJ 250 MG in PREMIX 1 EACH IV SCH (13:46)
[2017-11-09] MEDS: POTASSIUM CHLORIDE 20 MEQ TABLET PO PRN ×3 (16:55→20:43)
[2017-11-09] MEDS: SIMVASTATIN 10 MG TABLET PO SCH (20:43)
[2017-11-10] MEDS: ALBUTEROL 0.63 MG/3 ML NEB RESP TX SCH ×4 (00:30→19:31)
[2017-11-10] MEDS: ASPIRIN EC 81 MG TABLET PO SCH (10:18)
[2017-11-10] MEDS: PARoxetine 20 MG TABLET PO SCH (10:18)
[2017-11-10] MEDS: FERROUS SULFATE 325 MG TABLET PO SCH (10:18)
[2017-11-10] MEDS: CLORAZEPATE 3.75 MG TABLET PO SCH ×2 (10:18→20:00)
[2017-11-10] MEDS: TERAZOSIN 1 MG CAPSULE PO SCH (10:18)
[2017-11-10] MEDS: FUROSEMIDE 40 MG TABLET PO SCH (10:18)
[2017-11-10] MEDS: PANTOPRAZOLE 40 MG TABLET PO SCH (10:18)
[2017-11-10] MEDS: COLCHICINE 0.6 MG TABLET PO SCH ×2 (10:18→19:59)
[2017-11-10] MEDS: VERAPAMIL SR 240 MG TABLET PO SCH (10:18)
[2017-11-10] MEDS: MULTIVITAMIN (CENTRUM) TABLET PO SCH (10:18)
[2017-11-10] MEDS: NYSTATIN 500,000 UNIT/5 ML UDCUP SWISH/SWAL SCH ×4 (10:19→20:00)
[2017-11-10] MEDS: DOCUSATE SODIUM 100 MG CAPSULE PO SCH ×2 (10:19→19:59)
[2017-11-10] MEDS: METOPROLOL TARTRATE 25 MG TABLET PO SCH ×2 (10:19→19:59)
[2017-11-10] MEDS: ZINC OXIDE PASTE 113 GM TUBE TOP SCH ×2 (10:19→20:04)
[2017-11-10] MEDS: metOLazone 2.5 MG TABLET PO SCH (10:21)
[2017-11-10] MEDS: LEVOFLOXACIN INJ 250 MG in PREMIX 1 EACH IV SCH (11:45)
[2017-11-10] MEDS: SIMVASTATIN 10 MG TABLET PO SCH (20:00)
[2017-11-11] MEDS: ALBUTEROL 0.63 MG/3 ML NEB RESP TX SCH ×4 (00:23→19:35)
[2017-11-11] MEDS: PANTOPRAZOLE 40 MG TABLET PO SCH (06:48)
[2017-11-11] MEDS: VERAPAMIL SR 240 MG TABLET PO SCH (08:56)
[2017-11-11] MEDS: COLCHICINE 0.6 MG TABLET PO SCH ×2 (08:56→20:36)
[2017-11-11] MEDS: NYSTATIN 500,000 UNIT/5 ML UDCUP SWISH/SWAL SCH ×4 (08:56→20:37)
[2017-11-11] MEDS: MULTIVITAMIN (CENTRUM) TABLET PO SCH (08:57)
[2017-11-11] MEDS: FERROUS SULFATE 325 MG TABLET PO SCH (08:57)
[2017-11-11] MEDS: PARoxetine 20 MG TABLET PO SCH (08:57)
[2017-11-11] MEDS: TERAZOSIN 1 MG CAPSULE PO SCH (08:57)
[2017-11-11] MEDS: DOCUSATE SODIUM 100 MG CAPSULE PO SCH ×2 (08:57→20:36)
[2017-11-11] MEDS: CLORAZEPATE 3.75 MG TABLET PO SCH ×2 (08:57→20:36)
[2017-11-11] MEDS: ASPIRIN EC 81 MG TABLET PO SCH (08:57)
[2017-11-11] MEDS: ZINC OXIDE PASTE 113 GM TUBE TOP SCH ×2 (08:58→20:37)
[2017-11-11] MEDS: metOLazone 2.5 MG TABLET PO SCH (08:58)
[2017-11-11] MEDS: METOPROLOL TARTRATE 25 MG TABLET PO SCH ×2 (08:58→20:36)
[2017-11-11] MEDS: FUROSEMIDE 40 MG TABLET PO SCH (08:59)
[2017-11-11] MEDS: LEVOFLOXACIN INJ 250 MG in PREMIX 1 EACH IV SCH (12:04)
[2017-11-11] MEDS: ALBUTEROL 0.63 MG/3 ML NEB RESP TX PRN (19:35)
[2017-11-11] MEDS: SIMVASTATIN 10 MG TABLET PO SCH (20:36)
[2017-11-12] MEDS: ALBUTEROL 0.63 MG/3 ML NEB RESP TX SCH ×4 (00:18→19:53)
[2017-11-12] MEDS: PANTOPRAZOLE 40 MG TABLET PO SCH (06:26)
[2017-11-12] MEDS: ASPIRIN EC 81 MG TABLET PO SCH (08:52)
[2017-11-12] MEDS: ZINC OXIDE PASTE 113 GM TUBE TOP SCH ×2 (08:52→21:17)
[2017-11-12] MEDS: COLCHICINE 0.6 MG TABLET PO SCH ×2 (08:52→21:16)
[2017-11-12] MEDS: TERAZOSIN 1 MG CAPSULE PO SCH (08:52)
[2017-11-12] MEDS: DOCUSATE SODIUM 100 MG CAPSULE PO SCH ×2 (08:52→21:17)
[2017-11-12] MEDS: FERROUS SULFATE 325 MG TABLET PO SCH (08:52)
[2017-11-12] MEDS: VERAPAMIL SR 240 MG TABLET PO SCH (08:52)
[2017-11-12] MEDS: MULTIVITAMIN (CENTRUM) TABLET PO SCH (08:52)
[2017-11-12] MEDS: metOLazone 2.5 MG TABLET PO SCH (08:53)
[2017-11-12] MEDS: METOPROLOL TARTRATE 25 MG TABLET PO SCH ×2 (08:53→21:17)
[2017-11-12] MEDS: FUROSEMIDE 40 MG TABLET PO SCH (08:53)
[2017-11-12] MEDS: NYSTATIN 500,000 UNIT/5 ML UDCUP SWISH/SWAL SCH ×4 (08:53→21:17)
[2017-11-12] MEDS: PARoxetine 20 MG TABLET PO SCH (08:53)
[2017-11-12] MEDS: LEVOFLOXACIN INJ 250 MG in PREMIX 1 EACH IV SCH (13:30)
[2017-11-12] MEDS: ALBUTEROL 0.63 MG/3 ML NEB RESP TX PRN (15:27)
[2017-11-12 16:07] LABS: RBC,Pleural Fluid > 100000 T/CUMM
[2017-11-12 17:47] LABS: Basophils % 0.5 % (0.0-0.8); Eosinophils # 0.2 10*3/uL (0.0-0.87); Eosinophils % 2.3 % (0.00-10.9); Hematocrit 38.2 VOL% (42.0-52.0); Hemoglobin 11.7 GM/DL (14.0-18.0); Immature Granulocytes % 0.6 %; Immature Granulocytes Absolute 0.05 #; Lymphocytes # 0.9 10*3/uL (1.4-4.0); Lymphocytes % 11.8 % (21.2-54.2); Mean Corpuscular HGB Conc 30.6 GM/DL (32-36); Mean Corpuscular Hemoglobin 25 PG (27-34); Mean Corpuscular Volume 80.3 FL (87-102); Mean Platelet Volume 9.3 FL (9.6-12.0); Monocytes # 0.5 10*3/uL (0.11-0.8); Monocytes % 6.7 % (1.7-12.7); Neutrophils # 6.2 10*3/uL (1.4-7.4); Neutrophils % 78.1 % (38.7-73.9); Platelet Count 574 T/CUMM (130-400); Red Blood Count 4.76 MC/CUMM (3.8-5.5); Red Cell Distribution Width 17.2 % (9.3-17.3); White Blood Count 7.9 T/CUMM (4-12)
[2017-11-12 18:10] LABS: Calcium 8.3 MG/DL (8.5-10.1); Osmolality,Calculated 284.8 MOS/KG (273-304); Potassium 3.4 MMOL/L (3.5-5.1)
[2017-11-12] MEDS: POTASSIUM CHLORIDE 20 MEQ TABLET PO PRN ×3 (18:40→23:45)
[2017-11-12] MEDS: SIMVASTATIN 10 MG TABLET PO SCH (21:16)
[2017-11-12] MEDS: APIXABAN 5 MG TABLET PO SCH (21:18)
[2017-11-12 21:51] LABS: Lymphocytes,Pleural Fluid 81 %; Monocytes,Pleural Fluid 8 %; Neutrophils,Pleural Fluid 11 %
[2017-11-13] MEDS: ALBUTEROL 0.63 MG/3 ML NEB RESP TX SCH ×2 (01:32→07:38)
[2017-11-13] MEDS: PANTOPRAZOLE 40 MG TABLET PO SCH (07:03)
[2017-11-13] MEDS ORDERED: POTASSIUM CHLORIDE 20 MEQ TABLET PO ONE (07:05)
[2017-11-13 07:41] VITALS: BP 100/64
[2017-11-13] MEDS: NYSTATIN 500,000 UNIT/5 ML UDCUP SWISH/SWAL SCH (08:45)
[2017-11-13] MEDS: TERAZOSIN 1 MG CAPSULE PO SCH (08:45)
[2017-11-13] MEDS: MULTIVITAMIN (CENTRUM) TABLET PO SCH (08:45)
[2017-11-13] MEDS: VERAPAMIL SR 240 MG TABLET PO SCH (08:46)
[2017-11-13] MEDS: DOCUSATE SODIUM 100 MG CAPSULE PO SCH (08:46)
[2017-11-13] MEDS: COLCHICINE 0.6 MG TABLET PO SCH (08:46)
[2017-11-13] MEDS: FERROUS SULFATE 325 MG TABLET PO SCH (08:46)
[2017-11-13] MEDS: ASPIRIN EC 81 MG TABLET PO SCH (08:46)
[2017-11-13] MEDS: metOLazone 2.5 MG TABLET PO SCH (08:46)
[2017-11-13] MEDS: PARoxetine 20 MG TABLET PO SCH (08:47)
[2017-11-13] MEDS: FUROSEMIDE 40 MG TABLET PO SCH (08:47)
[2017-11-13] MEDS: METOPROLOL TARTRATE 25 MG TABLET PO SCH (08:47)
[2017-11-13] MEDS ORDERED: APIXABAN 2.5 MG TABLET PO SCH (09:00)
[2017-11-13] MEDS: ZINC OXIDE PASTE 113 GM TUBE TOP SCH (09:39)
== END 2017-11-13 12:45 | disposition home or self-care (01) | DRG 291 ==
LOC: EDBD → EDUNIT# → N.ED 18:53 → N.EDINP 22:33 → N.5E 23:12
PROVIDERS: ADMIT Family Medicine; ATTEND Family Medicine
PROC: IRTHORA (2017-11-12 13:30)

== ENCOUNTER 2018-05-28 12:29 | Inpatient (IN) ==
[2018-05-28] MEDS ORDERED: ONDANSETRON 4 MG/2 ML VIAL IV STA (12:49)
[2018-05-28] MEDS ORDERED: methylPREDNISolone SOD SUC 125 MG/2 ML VIAL IV STA (12:49)
[2018-05-28] MEDS ORDERED: LEVOFLOXACIN INJ 750 MG in PREMIX 1 EACH IV STA (12:49)
[2018-05-28] MEDS ORDERED: ALBUTEROL/IPRATROPIUM 3 ML NEB RESP TX STA (12:49)
[2018-05-28] MEDS ORDERED: FUROSEMIDE 40 MG/4 ML VIAL IV STA (13:19)
[2018-05-28] MEDS ORDERED: ALBUTEROL/IPRATROPIUM 3 ML NEB RESP TX PRN (13:42)
[2018-05-28] MEDS ORDERED: ONDANSETRON 4 MG/2 ML VIAL IV PRN (13:42)
[2018-05-28] MEDS ORDERED: ACETAMINOPHEN 500 MG TABLET PO PRN (13:42)
[2018-05-28 14:43] LABS: INR 1.2; PT Patient Result 12.5 SECS; Partial Thromboplastin Time 27.2 SECS (0-40)
[2018-05-28 14:51] LABS: Basophils % 0.2 % (0.0-0.8); Eosinophils % 0.1 % (0.00-10.9); Hematocrit 34.2 VOL% (42.0-52.0); Hemoglobin 9.8 GM/DL (14.0-18.0); Immature Granulocytes % 0.7 %; Immature Granulocytes Absolute 0.09 #; Lymphocytes # 0.8 10*3/uL (1.4-4.0); Mean Corpuscular HGB Conc 28.7 GM/DL (32-36); Mean Corpuscular Hemoglobin 23 PG (27-34); Mean Corpuscular Volume 79.5 FL (87-102); Monocytes # 0.6 10*3/uL (0.11-0.8); Monocytes % 4.6 % (1.7-12.7); Neutrophils # 11.9 10*3/uL (1.4-7.4); Neutrophils % 88.4 % (38.7-73.9); Platelet Count 295 T/CUMM (130-400); Red Cell Distribution Width 15.9 % (9.3-17.3); White Blood Count 13.4 T/CUMM (4-12)
[2018-05-28 14:57] LABS: Alanine Aminotransferase 17 U/L (16-61); Albumin 3.3 G/DL (3.4-5.0); Alkaline Phosphatase 92 U/L (45-117); Aspartate Amino Transferase 22 U/L (0-37); Blood Urea Nitrogen 30 MG/DL (7-18); Calcium 8.5 MG/DL (8.5-10.1); Glucose 87 MG/DL (74-106); Osmolality,Calculated 287.1 MOS/KG (273-304); Potassium 4.2 MMOL/L (3.5-5.1); Sodium 142 MMOL/L (136-145); Total Protein 7.5 G/DL (6.4-8.3)
[2018-05-28 15:20] LABS: Elliptocytes Few; Hypochromasia Slight; Microcytosis Slight; Platelet Estimate Adequate; Polychromasia Slight
[2018-05-28] MEDS: FUROSEMIDE 40 MG/4 ML VIAL IV SCH (15:45)
[2018-05-28 16:01] LABS: Apearance,Urine CLEAR (Clear); Bacteria,Urine Occasional /HPF (Few); Bilirubin,Urine Negative (Negative); Blood, Urine Negative (Negative); Glucose,Urine (UA) Negative (Negative); Ketones,Urine Negative (Negative); Nitrite,Urine Negative (Negative); Protein,Urine Negative; RBC,Urine 2 /HPF (0-4); Urine Color Yellow (Yellow); Urine Specific Gravity 1.011 (1.001-1.035); Urine Urobilinogen < 2.0 EU/DL (0.2-1.0); WBC,Urine 5 /HPF (0-6)
[2018-05-28] MEDS ORDERED: BENZONATATE 100 MG CAPSULE PO PRN (18:23)
[2018-05-28] MEDS ORDERED: APIXABAN 5 MG TABLET PO SCH (21:00)
[2018-05-28] MEDS: APIXABAN 2.5 MG TABLET PO SCH (21:22)
[2018-05-28] MEDS: CLORAZEPATE 3.75 MG TABLET PO SCH (21:22)
[2018-05-28] MEDS: CLINDAMYCIN INJ 600 MG in PREMIX 1 EACH IV SCH (21:23)
[2018-05-28] MEDS: METOPROLOL TARTRATE 25 MG TABLET PO SCH (21:23)
[2018-05-29] MEDS ORDERED: methylPREDNISolone SOD SUC 125 MG/2 ML VIAL IV SCH (02:00)
[2018-05-29] MEDS: CLINDAMYCIN INJ 600 MG in PREMIX 1 EACH IV SCH ×3 (05:00→20:08)
[2018-05-29] MEDS: FUROSEMIDE 40 MG/4 ML VIAL IV SCH ×2 (08:10→18:29)
[2018-05-29] MEDS: methylPREDNISolone SOD SUC 125 MG/2 ML VIAL IV SCH ×2 (10:53→22:43)
[2018-05-29] MEDS: ASPIRIN EC 81 MG TABLET PO SCH (10:56)
[2018-05-29] MEDS: VERAPAMIL SR 240 MG TABLET PO SCH (10:56)
[2018-05-29] MEDS: PANTOPRAZOLE 40 MG TABLET PO SCH (10:57)
[2018-05-29] MEDS: TERAZOSIN 1 MG CAPSULE PO SCH (10:57)
[2018-05-29] MEDS: POTASSIUM CHLORIDE 20 MEQ TABLET PO SCH (10:57)
[2018-05-29] MEDS: FERROUS SULFATE 325 MG TABLET PO SCH (10:57)
[2018-05-29] MEDS: APIXABAN 2.5 MG TABLET PO SCH ×2 (10:57→20:06)
[2018-05-29] MEDS: MULTIVITAMIN (CENTRUM) TABLET PO SCH (10:57)
[2018-05-29] MEDS: PARoxetine 20 MG TABLET PO SCH (10:57)
[2018-05-29] MEDS: SIMVASTATIN 40 MG TABLET PO SCH (10:57)
[2018-05-29] MEDS: METOPROLOL TARTRATE 25 MG TABLET PO SCH ×2 (10:58→20:06)
[2018-05-29] MEDS: FOLIC ACID 1 MG TABLET PO SCH (10:58)
[2018-05-29] MEDS: NON-FORMULARY MEDICATION (Umeclidinium Brm/Vilanterol Tr [Anoro Ellipta] 1 PUFF) INH SCH (10:59)
[2018-05-29] MEDS: CLORAZEPATE 3.75 MG TABLET PO SCH (20:06)
[2018-05-30] MEDS: CLINDAMYCIN INJ 600 MG in PREMIX 1 EACH IV SCH ×3 (04:05→21:31)
[2018-05-30 05:14] LABS: Basophils % 0.1 % (0.0-0.8); Hematocrit 30.4 VOL% (42.0-52.0); Hemoglobin 8.8 GM/DL (14.0-18.0); Immature Granulocytes % 0.9 %; Immature Granulocytes Absolute 0.16 #; Lymphocytes # 0.9 10*3/uL (1.4-4.0); Lymphocytes % 4.9 % (21.2-54.2); Mean Corpuscular HGB Conc 28.9 GM/DL (32-36); Mean Corpuscular Hemoglobin 23 PG (27-34); Mean Corpuscular Volume 77.9 FL (87-102); Mean Platelet Volume 10.2 FL (9.6-12.0); Monocytes # 0.4 10*3/uL (0.11-0.8); Monocytes % 2.4 % (1.7-12.7); Neutrophils # 16.4 10*3/uL (1.4-7.4); Neutrophils % 91.7 % (38.7-73.9); Platelet Count 301 T/CUMM (130-400); White Blood Count 17.9 T/CUMM (4-12)
[2018-05-30 05:39] LABS: Band Neutrophils 1 % (0-10); Hypochromasia 1+; Lymphocytes 5 % (20-55); Ovalocytes Slight; Platelet Estimate Adequate; Segmented Neutrophils 93 % (50-85); Total Cells Counted 100
[2018-05-30 05:40] LABS: Microcytosis Slight
[2018-05-30 05:45] LABS: Calcium 8.1 MG/DL (8.5-10.1); Osmolality,Calculated 303.1 MOS/KG (273-304)
[2018-05-30] MEDS: PANTOPRAZOLE 40 MG TABLET PO SCH (09:34)
[2018-05-30] MEDS: SIMVASTATIN 40 MG TABLET PO SCH (09:34)
[2018-05-30] MEDS: PARoxetine 20 MG TABLET PO SCH (09:35)
[2018-05-30] MEDS: METOPROLOL TARTRATE 25 MG TABLET PO SCH ×2 (09:35→21:25)
[2018-05-30] MEDS: POTASSIUM CHLORIDE 20 MEQ TABLET PO SCH (09:35)
[2018-05-30] MEDS: TERAZOSIN 1 MG CAPSULE PO SCH (09:35)
[2018-05-30] MEDS: ASPIRIN EC 81 MG TABLET PO SCH (09:35)
[2018-05-30] MEDS: FOLIC ACID 1 MG TABLET PO SCH (09:35)
[2018-05-30] MEDS: MULTIVITAMIN (CENTRUM) TABLET PO SCH (09:35)
[2018-05-30] MEDS: APIXABAN 2.5 MG TABLET PO SCH ×2 (09:35→21:28)
[2018-05-30] MEDS: FERROUS SULFATE 325 MG TABLET PO SCH (09:35)
[2018-05-30] MEDS: VERAPAMIL SR 240 MG TABLET PO SCH (09:42)
[2018-05-30] MEDS: NON-FORMULARY MEDICATION (Umeclidinium Brm/Vilanterol Tr [Anoro Ellipta] 1 PUFF) INH SCH (09:43)
[2018-05-30] MEDS: FUROSEMIDE 40 MG/4 ML VIAL IV SCH (10:30)
[2018-05-30] MEDS: methylPREDNISolone SOD SUC 40 MG/1 ML VIAL IV SCH ×2 (10:30→21:25)
[2018-05-30] MEDS ORDERED: LEVOFLOXACIN INJ 750 MG in PREMIX 1 EACH IV SCH (14:00)
[2018-05-30] MEDS: CLORAZEPATE 3.75 MG TABLET PO SCH (21:25)
[2018-05-31] MEDS: CLINDAMYCIN INJ 600 MG in PREMIX 1 EACH IV SCH ×2 (04:19→11:31)
[2018-05-31] MEDS: PARoxetine 20 MG TABLET PO SCH (09:51)
[2018-05-31] MEDS: METOPROLOL TARTRATE 25 MG TABLET PO SCH (09:51)
[2018-05-31] MEDS: methylPREDNISolone SOD SUC 40 MG/1 ML VIAL IV SCH (09:51)
[2018-05-31] MEDS: MULTIVITAMIN (CENTRUM) TABLET PO SCH (09:52)
[2018-05-31] MEDS: FOLIC ACID 1 MG TABLET PO SCH (09:52)
[2018-05-31] MEDS: SIMVASTATIN 40 MG TABLET PO SCH (09:52)
[2018-05-31] MEDS: TERAZOSIN 1 MG CAPSULE PO SCH (09:52)
[2018-05-31] MEDS: POTASSIUM CHLORIDE 20 MEQ TABLET PO SCH (09:52)
[2018-05-31] MEDS: ASPIRIN EC 81 MG TABLET PO SCH (09:52)
[2018-05-31] MEDS: NON-FORMULARY MEDICATION (Umeclidinium Brm/Vilanterol Tr [Anoro Ellipta] 1 PUFF) INH SCH (09:52)
[2018-05-31] MEDS: APIXABAN 2.5 MG TABLET PO SCH (09:52)
[2018-05-31] MEDS: VERAPAMIL SR 240 MG TABLET PO SCH (09:52)
[2018-05-31] MEDS: PANTOPRAZOLE 40 MG TABLET PO SCH (09:52)
[2018-05-31] MEDS: FERROUS SULFATE 325 MG TABLET PO SCH (09:52)
[2018-05-31] MEDS: FUROSEMIDE 40 MG/4 ML VIAL IV SCH (09:53)
[2018-05-31 12:48] VITALS: BP 157/67
== END 2018-05-31 14:00 | disposition home or self-care (01) | DRG 190 ==
LOC: EDBD → EDUNIT# → N.ED 12:29 → N.EDINP 13:41 → N.TELES 15:22
PROVIDERS: ADMIT Family Medicine; ATTEND Family Medicine

== ENCOUNTER 2019-12-14 18:59 | Inpatient (IN) ==
[2019-12-14 21:25] LABS: Basophils % 0.2 % (0.0-0.8); Hematocrit 49.3 VOL% (42.0-52.0); Hemoglobin 15.1 GM/DL (14.0-18.0); Immature Granulocytes % 0.2 %; Immature Granulocytes Absolute 0.01 #; Lymphocytes # 0.8 10*3/uL (1.4-4.0); Lymphocytes % 15.6 % (21.2-54.2); Mean Corpuscular HGB Conc 30.6 GM/DL (32-36); Mean Corpuscular Volume 90.5 FL (87-102); Mean Platelet Volume 10.2 FL (9.6-12.0); Monocytes % 8.7 % (1.7-12.7); Neutrophils % 75.3 % (38.7-73.9); Platelet Count 205 T/CUMM (130-400); Red Blood Count 5.45 MC/CUMM (3.8-5.5); Red Cell Distribution Width 14.7 % (9.3-17.3); White Blood Count 4.9 T/CUMM (4-12)
[2019-12-14 21:47] LABS: Calcium 8.3 MG/DL (8.5-10.1); Osmolality,Calculated 272.2 MOS/KG (273-304)
[2019-12-14] MEDS ORDERED: ALBUTEROL/IPRATROPIUM 3 ML NEB RESP TX PRN (23:16)
[2019-12-14] MEDS ORDERED: ALBUTEROL 0.63 MG/3 ML NEB RESP TX PRN (23:16)
[2019-12-14] MEDS ORDERED: COLCHICINE 0.6 MG CAPSULE PO PRN (23:16)
[2019-12-15] MEDS: ACETAMINOPHEN 325 MG TABLET PO PRN (00:10)
[2019-12-15] MEDS: VERAPAMIL SR 240 MG TABLET PO SCH (08:41)
[2019-12-15] MEDS: MULTIVITAMIN (CENTRUM) TABLET PO SCH (08:41)
[2019-12-15] MEDS: FERROUS SULFATE 325 MG TABLET PO SCH (08:41)
[2019-12-15] MEDS: FOLIC ACID 1 MG TABLET PO SCH (08:41)
[2019-12-15] MEDS: POTASSIUM CHLORIDE 20 MEQ TABLET PO SCH (08:41)
[2019-12-15] MEDS: APIXABAN 5 MG TABLET PO SCH ×2 (08:41→20:38)
[2019-12-15] MEDS: METOPROLOL TARTRATE 25 MG TABLET PO SCH ×2 (08:41→20:39)
[2019-12-15] MEDS: TERAZOSIN 1 MG CAPSULE PO SCH (08:41)
[2019-12-15] MEDS: FUROSEMIDE 40 MG TABLET PO SCH (08:41)
[2019-12-15] MEDS: PANTOPRAZOLE 40 MG TABLET PO SCH (08:41)
[2019-12-15] MEDS: ASPIRIN EC 81 MG TABLET PO SCH (08:41)
[2019-12-15] MEDS ORDERED: AZITHROMYCIN 250 MG TABLET PO ONE (12:00)
[2019-12-15] MEDS: SIMVASTATIN 40 MG TABLET PO SCH (20:38)
[2019-12-15] MEDS: CLORAZEPATE 3.75 MG TABLET PO SCH (20:39)
[2019-12-16 06:11] LABS: Hematocrit 45.4 VOL% (42.0-52.0); Immature Granulocytes % 0.2 %; Immature Granulocytes Absolute 0.01 #; Lymphocytes # 0.8 10*3/uL (1.4-4.0); Lymphocytes % 17.8 % (21.2-54.2); Mean Corpuscular HGB Conc 30.8 GM/DL (32-36); Mean Platelet Volume 10.8 FL (9.6-12.0); Monocytes % 6.9 % (1.7-12.7); Neutrophils % 75.1 % (38.7-73.9); Platelet Count 190 T/CUMM (130-400); Red Cell Distribution Width 14.7 % (9.3-17.3); White Blood Count 4.7 T/CUMM (4-12)
[2019-12-16 06:26] LABS: Bilirubin,Total 0.6 MG/DL (0.2-1.0); Calcium 8.1 MG/DL (8.5-10.1); Osmolality,Calculated 278.8 MOS/KG (273-304); Total Protein 6.2 G/DL (6.4-8.3)
[2019-12-16] MEDS: MULTIVITAMIN (CENTRUM) TABLET PO SCH (09:55)
[2019-12-16] MEDS: ASPIRIN EC 81 MG TABLET PO SCH (09:55)
[2019-12-16] MEDS: VERAPAMIL SR 240 MG TABLET PO SCH (09:55)
[2019-12-16] MEDS: TERAZOSIN 1 MG CAPSULE PO SCH (09:56)
[2019-12-16] MEDS: POTASSIUM CHLORIDE 20 MEQ TABLET PO SCH (09:56)
[2019-12-16] MEDS: FOLIC ACID 1 MG TABLET PO SCH (09:56)
[2019-12-16] MEDS: FUROSEMIDE 40 MG TABLET PO SCH (09:56)
[2019-12-16] MEDS: FERROUS SULFATE 325 MG TABLET PO SCH (09:56)
[2019-12-16] MEDS: METOPROLOL TARTRATE 25 MG TABLET PO SCH ×2 (09:56→20:15)
[2019-12-16] MEDS: APIXABAN 5 MG TABLET PO SCH ×2 (09:56→20:15)
[2019-12-16] MEDS: PANTOPRAZOLE 40 MG TABLET PO SCH (09:57)
[2019-12-16] MEDS: AZITHROMYCIN 250 MG TABLET PO SCH (09:57)
[2019-12-16] MEDS: SODIUM CHLORIDE 0.9% 1,000 ML IV SCH (13:09)
[2019-12-16] MEDS: CLORAZEPATE 3.75 MG TABLET PO SCH (20:15)
[2019-12-16] MEDS: SIMVASTATIN 40 MG TABLET PO SCH (20:15)
[2019-12-17] MEDS: ACETAMINOPHEN 325 MG TABLET PO PRN (00:40)
[2019-12-17] MEDS: SODIUM CHLORIDE 0.9% 1,000 ML IV SCH ×2 (01:07→14:45)
[2019-12-17] MEDS: AZITHROMYCIN 250 MG TABLET PO SCH (08:45)
[2019-12-17] MEDS: TERAZOSIN 1 MG CAPSULE PO SCH (08:45)
[2019-12-17] MEDS: POTASSIUM CHLORIDE 20 MEQ TABLET PO SCH (08:45)
[2019-12-17] MEDS: METOPROLOL TARTRATE 25 MG TABLET PO SCH ×2 (08:45→21:50)
[2019-12-17] MEDS: ASPIRIN EC 81 MG TABLET PO SCH (08:45)
[2019-12-17] MEDS: PANTOPRAZOLE 40 MG TABLET PO SCH (08:45)
[2019-12-17] MEDS: FOLIC ACID 1 MG TABLET PO SCH (08:45)
[2019-12-17] MEDS: FUROSEMIDE 40 MG TABLET PO SCH (08:45)
[2019-12-17] MEDS: FERROUS SULFATE 325 MG TABLET PO SCH (08:45)
[2019-12-17] MEDS: MULTIVITAMIN (CENTRUM) TABLET PO SCH (08:46)
[2019-12-17] MEDS: VERAPAMIL SR 240 MG TABLET PO SCH (08:46)
[2019-12-17] MEDS: APIXABAN 5 MG TABLET PO SCH ×2 (08:46→21:50)
[2019-12-17] MEDS: HYDROXYCHLOROQUINE 200 MG TABLET PO SCH (21:50)
[2019-12-17] MEDS: CLORAZEPATE 3.75 MG TABLET PO SCH (21:50)
[2019-12-17] MEDS: SIMVASTATIN 40 MG TABLET PO SCH (21:50)
[2019-12-18] MEDS: SODIUM CHLORIDE 0.9% 1,000 ML IV SCH (04:16)
[2019-12-18] MEDS: POTASSIUM CHLORIDE 20 MEQ TABLET PO SCH (11:44)
[2019-12-18] MEDS: MULTIVITAMIN (CENTRUM) TABLET PO SCH (11:44)
[2019-12-18] MEDS: ASPIRIN EC 81 MG TABLET PO SCH (11:46)
[2019-12-18] MEDS: HYDROXYCHLOROQUINE 200 MG TABLET PO SCH ×2 (11:47→21:20)
[2019-12-18] MEDS: FERROUS SULFATE 325 MG TABLET PO SCH (11:48)
[2019-12-18] MEDS: FOLIC ACID 1 MG TABLET PO SCH (11:48)
[2019-12-18] MEDS: APIXABAN 5 MG TABLET PO SCH ×2 (11:48→23:16)
[2019-12-18] MEDS: FUROSEMIDE 40 MG TABLET PO SCH (11:49)
[2019-12-18] MEDS: TERAZOSIN 1 MG CAPSULE PO SCH (11:49)
[2019-12-18] MEDS: VERAPAMIL SR 240 MG TABLET PO SCH (11:49)
[2019-12-18] MEDS: ZINC SULFATE 220 MG CAPSULE PO SCH (11:49)
[2019-12-18] MEDS: METOPROLOL TARTRATE 25 MG TABLET PO SCH ×2 (11:50→21:16)
[2019-12-18] MEDS: AZITHROMYCIN 250 MG TABLET PO SCH (11:50)
[2019-12-18] MEDS: PANTOPRAZOLE 40 MG TABLET PO SCH (11:50)
[2019-12-18 12:19] LABS: Osmolality,Calculated 279.5 MOS/KG (273-304)
[2019-12-18 12:24] LABS: Hematocrit 44.1 VOL% (42.0-52.0); Hemoglobin 13.7 GM/DL (14.0-18.0); Immature Granulocytes % 0.3 %; Immature Granulocytes Absolute 0.01 #; Lymphocytes # 0.7 10*3/uL (1.4-4.0); Lymphocytes % 17.9 % (21.2-54.2); Mean Corpuscular HGB Conc 31.1 GM/DL (32-36); Mean Corpuscular Volume 89.1 FL (87-102); Mean Platelet Volume 10.9 FL (9.6-12.0); Monocytes % 9.6 % (1.7-12.7); Neutrophils % 72.2 % (38.7-73.9); Platelet Count 193 T/CUMM (130-400); Red Blood Count 4.95 MC/CUMM (3.8-5.5); Red Cell Distribution Width 14.6 % (9.3-17.3); White Blood Count 3.9 T/CUMM (4-12)
[2019-12-18] MEDS: CLORAZEPATE 3.75 MG TABLET PO SCH (21:15)
[2019-12-18] MEDS: SIMVASTATIN 40 MG TABLET PO SCH (21:20)
[2019-12-19] MEDS: METOPROLOL TARTRATE 25 MG TABLET PO SCH ×2 (08:26→21:51)
[2019-12-19] MEDS: MULTIVITAMIN (CENTRUM) TABLET PO SCH (08:26)
[2019-12-19] MEDS: PANTOPRAZOLE 40 MG TABLET PO SCH (08:26)
[2019-12-19] MEDS: VERAPAMIL SR 240 MG TABLET PO SCH (08:26)
[2019-12-19] MEDS: FUROSEMIDE 40 MG TABLET PO SCH (08:26)
[2019-12-19] MEDS: POTASSIUM CHLORIDE 20 MEQ TABLET PO SCH (08:26)
[2019-12-19] MEDS: FERROUS SULFATE 325 MG TABLET PO SCH (08:26)
[2019-12-19] MEDS: TERAZOSIN 1 MG CAPSULE PO SCH (08:26)
[2019-12-19] MEDS: HYDROXYCHLOROQUINE 200 MG TABLET PO SCH ×2 (08:26→21:52)
[2019-12-19] MEDS: ASPIRIN EC 81 MG TABLET PO SCH (08:26)
[2019-12-19] MEDS: APIXABAN 5 MG TABLET PO SCH ×2 (08:26→21:00)
[2019-12-19] MEDS: FOLIC ACID 1 MG TABLET PO SCH (08:26)
[2019-12-19] MEDS: AZITHROMYCIN 250 MG TABLET PO SCH (08:26)
[2019-12-19] MEDS: ASCORBIC ACID 500 MG TABLET PO SCH (15:45)
[2019-12-19] MEDS: SIMVASTATIN 40 MG TABLET PO SCH (21:50)
[2019-12-19] MEDS: BENZONATATE 100 MG CAPSULE PO PRN (21:51)
[2019-12-19] MEDS: CLORAZEPATE 3.75 MG TABLET PO SCH (21:51)
[2019-12-20 05:43] LABS: Basophils % 0.2 % (0.0-0.8); Eosinophils % 0.2 % (0.00-10.9); Hematocrit 45.4 VOL% (42.0-52.0); Immature Granulocytes % 0.5 %; Immature Granulocytes Absolute 0.02 #; Lymphocytes # 0.5 10*3/uL (1.4-4.0); Lymphocytes % 12.4 % (21.2-54.2); Mean Corpuscular HGB Conc 30.8 GM/DL (32-36); Mean Corpuscular Volume 87.8 FL (87-102); Mean Platelet Volume 10.7 FL (9.6-12.0); Monocytes % 8.3 % (1.7-12.7); Neutrophils % 78.4 % (38.7-73.9); Platelet Count 235 T/CUMM (130-400); Red Blood Count 5.17 MC/CUMM (3.8-5.5); Red Cell Distribution Width 14.2 % (9.3-17.3); White Blood Count 4.1 T/CUMM (4-12)
[2019-12-20 05:56] LABS: Albumin 2.4 G/DL (3.4-5.0); Bilirubin,Total 0.9 MG/DL (0.2-1.0); Calcium 8.3 MG/DL (8.5-10.1); Osmolality,Calculated 282.4 MOS/KG (273-304); Total Protein 6.5 G/DL (6.4-8.3)
[2019-12-20] MEDS: MULTIVITAMIN (CENTRUM) TABLET PO SCH (08:41)
[2019-12-20] MEDS: FOLIC ACID 1 MG TABLET PO SCH (08:41)
[2019-12-20] MEDS: POTASSIUM CHLORIDE 20 MEQ TABLET PO SCH (08:41)
[2019-12-20] MEDS: APIXABAN 5 MG TABLET PO SCH ×2 (08:41→20:06)
[2019-12-20] MEDS: HYDROXYCHLOROQUINE 200 MG TABLET PO SCH ×2 (08:41→20:09)
[2019-12-20] MEDS: ASPIRIN EC 81 MG TABLET PO SCH (08:41)
[2019-12-20] MEDS: FUROSEMIDE 40 MG TABLET PO SCH (08:41)
[2019-12-20] MEDS: VERAPAMIL SR 240 MG TABLET PO SCH (08:42)
[2019-12-20] MEDS: PANTOPRAZOLE 40 MG TABLET PO SCH (08:42)
[2019-12-20] MEDS: METOPROLOL TARTRATE 25 MG TABLET PO SCH ×2 (08:42→20:06)
[2019-12-20] MEDS: ZINC SULFATE 220 MG CAPSULE PO SCH (08:42)
[2019-12-20] MEDS: ASCORBIC ACID 500 MG TABLET PO SCH (08:42)
[2019-12-20] MEDS: FERROUS SULFATE 325 MG TABLET PO SCH (08:42)
[2019-12-20] MEDS: TERAZOSIN 1 MG CAPSULE PO SCH (08:42)
[2019-12-20] MEDS: CLORAZEPATE 3.75 MG TABLET PO SCH (20:06)
[2019-12-20] MEDS: SIMVASTATIN 40 MG TABLET PO SCH (20:06)
[2019-12-20] MEDS: BENZONATATE 100 MG CAPSULE PO PRN (20:07)
[2019-12-21] MEDS: BENZONATATE 100 MG CAPSULE PO PRN (07:03)
[2019-12-21] MEDS ORDERED: FUROSEMIDE 20 MG TABLET ONE (08:29)
[2019-12-21] MEDS: METOPROLOL TARTRATE 25 MG TABLET PO SCH ×2 (08:45→21:02)
[2019-12-21] MEDS: ASCORBIC ACID 500 MG TABLET PO SCH (08:45)
[2019-12-21] MEDS: ASPIRIN EC 81 MG TABLET PO SCH (08:45)
[2019-12-21] MEDS: TERAZOSIN 1 MG CAPSULE PO SCH (08:45)
[2019-12-21] MEDS: VERAPAMIL SR 240 MG TABLET PO SCH (08:45)
[2019-12-21] MEDS: HYDROXYCHLOROQUINE 200 MG TABLET PO SCH ×2 (08:45→21:01)
[2019-12-21] MEDS: FERROUS SULFATE 325 MG TABLET PO SCH (08:45)
[2019-12-21] MEDS: POTASSIUM CHLORIDE 20 MEQ TABLET PO SCH (08:45)
[2019-12-21] MEDS: FOLIC ACID 1 MG TABLET PO SCH (08:45)
[2019-12-21] MEDS: MULTIVITAMIN (CENTRUM) TABLET PO SCH (08:45)
[2019-12-21] MEDS: FUROSEMIDE 40 MG TABLET PO SCH (08:46)
[2019-12-21] MEDS: APIXABAN 5 MG TABLET PO SCH ×2 (08:46→21:01)
[2019-12-21] MEDS: PANTOPRAZOLE 40 MG TABLET PO SCH (09:52)
[2019-12-21] MEDS: SIMVASTATIN 40 MG TABLET PO SCH (21:01)
[2019-12-21] MEDS: CLORAZEPATE 3.75 MG TABLET PO SCH (21:01)
[2019-12-22] MEDS: MULTIVITAMIN (CENTRUM) TABLET PO SCH (09:07)
[2019-12-22] MEDS: ASPIRIN EC 81 MG TABLET PO SCH (09:07)
[2019-12-22] MEDS: PANTOPRAZOLE 40 MG TABLET PO SCH (09:07)
[2019-12-22] MEDS: TERAZOSIN 1 MG CAPSULE PO SCH (09:08)
[2019-12-22] MEDS: ASCORBIC ACID 500 MG TABLET PO SCH (09:08)
[2019-12-22] MEDS: FERROUS SULFATE 325 MG TABLET PO SCH (09:09)
[2019-12-22] MEDS: APIXABAN 5 MG TABLET PO SCH ×2 (09:09→22:10)
[2019-12-22] MEDS: FUROSEMIDE 40 MG TABLET PO SCH (09:10)
[2019-12-22] MEDS: ZINC SULFATE 220 MG CAPSULE PO SCH (09:10)
[2019-12-22] MEDS: VERAPAMIL SR 240 MG TABLET PO SCH (09:10)
[2019-12-22] MEDS: FOLIC ACID 1 MG TABLET PO SCH (09:10)
[2019-12-22] MEDS: POTASSIUM CHLORIDE 20 MEQ TABLET PO SCH (09:10)
[2019-12-22] MEDS: METOPROLOL TARTRATE 25 MG TABLET PO SCH ×2 (09:10→22:10)
[2019-12-22] MEDS: HYDROXYCHLOROQUINE 200 MG TABLET PO SCH (09:11)
[2019-12-22 10:02] LABS: Basophils % 0.3 % (0.0-0.8); Eosinophils # 0.1 10*3/uL (0.0-0.87); Eosinophils % 1.7 % (0.00-10.9); Hematocrit 44.4 VOL% (42.0-52.0); Hemoglobin 13.7 GM/DL (14.0-18.0); Immature Granulocytes % 0.7 %; Immature Granulocytes Absolute 0.04 #; Lymphocytes # 0.8 10*3/uL (1.4-4.0); Lymphocytes % 13.2 % (21.2-54.2); Mean Corpuscular HGB Conc 30.9 GM/DL (32-36); Mean Corpuscular Volume 88.6 FL (87-102); Mean Platelet Volume 10.2 FL (9.6-12.0); Monocytes % 8.7 % (1.7-12.7); Neutrophils % 75.4 % (38.7-73.9); Platelet Count 306 T/CUMM (130-400); Red Blood Count 5.01 MC/CUMM (3.8-5.5); Red Cell Distribution Width 14.1 % (9.3-17.3); White Blood Count 5.8 T/CUMM (4-12)
[2019-12-22 10:24] LABS: Calcium 8.7 MG/DL (8.5-10.1); Osmolality,Calculated 280.5 MOS/KG (273-304)
[2019-12-22] MEDS ORDERED: POTASSIUM CHLORIDE 20 MEQ TABLET PO ONE (12:00)
[2019-12-22] MEDS ORDERED: SODIUM CHLORIDE 0.9% 1,000 ML IV SCH (12:00)
[2019-12-22] MEDS ORDERED: POTASSIUM CHLORIDE 10 MEQ TABLET PO ONE (12:00)
[2019-12-22] MEDS: ALBUTEROL INHALER 8 GM INH SCH ×2 (14:43→20:49)
[2019-12-22] MEDS ORDERED: methylPREDNISolone SOD SUC 40 MG/1 ML VIAL IV ONE (15:00)
[2019-12-22 15:05] LABS: Allen Test Positive
[2019-12-22 15:06] LABS: ABG Base Excess -1.8 MMOL/L (-2.5-2.5); ABG HCO3 22.7 MMOL/L (20-26); ABG Oxygen Saturation 89.7 % (95-100); ABG PCO2 27.2 MM HG (35-48); ABG PH 7.478 (7.35-7.45); ABG PO2 55.4 MM HG (80-95); ABG TCO2 17.4 MMOL/L (23-27)
[2019-12-22] MEDS ORDERED: FUROSEMIDE 40 MG/4 ML VIAL ONE (16:09)
[2019-12-22] MEDS ORDERED: ETOMIDATE 20 MG/10 ML VIAL IV ONE (16:52)
[2019-12-22] MEDS ORDERED: SUCCINYLCHOLINE 200 MG/10 ML VIAL ONE (16:53)
[2019-12-22 19:58] LABS: Apearance,Urine Slightly Hazy (Clear); Bilirubin,Urine Negative (Negative); Blood, Urine Moderate mg/dL (Negative); Glucose,Urine (UA) Negative (Negative); Hyaline Casts,Urine 15 /LPF (0-3); Ketones,Urine Negative (Negative); Mucus,Urine Occasional /LPF (Occasional); Nitrite,Urine Negative (Negative); Protein,Urine Negative; RBC,Urine 1 /HPF (0-4); Squamous Epithelial Cell,Urine Occasional /HPF (0-10); Urine Color Yellow (Yellow); Urine Specific Gravity 1.015 (1.001-1.035)
[2019-12-22] MEDS: methylPREDNISolone SOD SUC 40 MG/1 ML VIAL IV SCH (22:09)
[2019-12-22] MEDS: SIMVASTATIN 40 MG TABLET PO SCH (22:10)
[2019-12-22] MEDS: CLORAZEPATE 3.75 MG TABLET PO SCH (22:10)
[2019-12-22] MEDS ORDERED: CLORAZEPATE 3.75 MG TABLET PO ONE (22:32)
[2019-12-23 04:33] LABS: ABG Base Excess -1.4 MMOL/L (-2.5-2.5); ABG Oxygen Saturation 89.8 % (95-100); ABG PCO2 30.1 MM HG (35-48); ABG PH 7.457 (7.35-7.45); ABG PO2 58.6 MM HG (80-95); ABG TCO2 18.1 MMOL/L (23-27); Allen Test Positive
[2019-12-23 05:36] LABS: Basophils % 0.1 % (0.0-0.8); Hematocrit 45.5 VOL% (42.0-52.0); Immature Granulocytes % 0.7 %; Immature Granulocytes Absolute 0.08 #; Lymphocytes # 0.5 10*3/uL (1.4-4.0); Lymphocytes % 3.8 % (21.2-54.2); Mean Corpuscular HGB Conc 30.8 GM/DL (32-36); Mean Platelet Volume 10.1 FL (9.6-12.0); Monocytes % 2.3 % (1.7-12.7); Neutrophils % 93.1 % (38.7-73.9); Platelet Count 357 T/CUMM (130-400); Red Blood Count 5.17 MC/CUMM (3.8-5.5); Red Cell Distribution Width 14.1 % (9.3-17.3); White Blood Count 12.1 T/CUMM (4-12)
[2019-12-23 05:57] LABS: Band Neutrophils 2 % (0-10); Hypochromasia Slight; Lymphocytes 4 % (20-55); Platelet Estimate Adequate; Segmented Neutrophils 92 % (50-85); Total Cells Counted 100
[2019-12-23 05:58] LABS: Calcium 8.8 MG/DL (8.5-10.1); Osmolality,Calculated 292.1 MOS/KG (273-304)
[2019-12-23] MEDS: methylPREDNISolone SOD SUC 40 MG/1 ML VIAL IV SCH ×3 (06:01→23:17)
[2019-12-23] MEDS: MULTIVITAMIN (CENTRUM) TABLET PO SCH (09:23)
[2019-12-23] MEDS: METOPROLOL TARTRATE 25 MG TABLET PO SCH ×2 (09:23→23:19)
[2019-12-23] MEDS: ASCORBIC ACID 500 MG TABLET PO SCH (09:23)
[2019-12-23] MEDS: ASPIRIN EC 81 MG TABLET PO SCH (09:23)
[2019-12-23] MEDS: FERROUS SULFATE 325 MG TABLET PO SCH (09:23)
[2019-12-23] MEDS: VERAPAMIL SR 240 MG TABLET PO SCH (09:23)
[2019-12-23] MEDS: FUROSEMIDE 40 MG TABLET PO SCH (09:24)
[2019-12-23] MEDS: POTASSIUM CHLORIDE 10 MEQ TABLET PO SCH (09:24)
[2019-12-23] MEDS: APIXABAN 5 MG TABLET PO SCH ×2 (09:24→23:19)
[2019-12-23] MEDS: TERAZOSIN 1 MG CAPSULE PO SCH (09:24)
[2019-12-23] MEDS: FOLIC ACID 1 MG TABLET PO SCH (09:24)
[2019-12-23] MEDS: PANTOPRAZOLE 40 MG TABLET PO SCH (09:24)
[2019-12-23] MEDS: cefTRIAXone 1,000 MG in SYRINGE 1 EACH IV SCH (09:25)
[2019-12-23] MEDS: ALBUTEROL INHALER 8 GM INH SCH ×2 (09:25→18:39)
[2019-12-23] MEDS: SIMVASTATIN 40 MG TABLET PO SCH (23:19)
[2019-12-23] MEDS: CLORAZEPATE 3.75 MG TABLET PO SCH (23:19)
[2019-12-24 06:03] LABS: Basophils % 0.1 % (0.0-0.8); Hematocrit 44.4 VOL% (42.0-52.0); Immature Granulocytes % 0.5 %; Immature Granulocytes Absolute 0.07 #; Lymphocytes # 0.6 10*3/uL (1.4-4.0); Lymphocytes % 3.9 % (21.2-54.2); Mean Corpuscular HGB Conc 31.5 GM/DL (32-36); Mean Corpuscular Volume 86.9 FL (87-102); Mean Platelet Volume 10.6 FL (9.6-12.0); Monocytes % 2.1 % (1.7-12.7); Neutrophils % 93.4 % (38.7-73.9); Platelet Count 431 T/CUMM (130-400); Red Blood Count 5.11 MC/CUMM (3.8-5.5); Red Cell Distribution Width 14.1 % (9.3-17.3); White Blood Count 14.9 T/CUMM (4-12)
[2019-12-24 06:17] LABS: Calcium 8.8 MG/DL (8.5-10.1); Osmolality,Calculated 295.3 MOS/KG (273-304)
[2019-12-24 06:23] LABS: Hypochromasia 1+; Lymphocytes 3 % (20-55); Microcytosis Slight; Segmented Neutrophils 96 % (50-85); Total Cells Counted 100
[2019-12-24 06:24] LABS: Burr Cells Slight; Platelet Estimate Increased
[2019-12-24] MEDS: methylPREDNISolone SOD SUC 40 MG/1 ML VIAL IV SCH ×2 (07:14→13:14)
[2019-12-24] MEDS: ALBUTEROL INHALER 8 GM INH SCH ×2 (07:17→20:52)
[2019-12-24] MEDS: MULTIVITAMIN (CENTRUM) TABLET PO SCH (09:00)
[2019-12-24] MEDS: VERAPAMIL SR 240 MG TABLET PO SCH (09:00)
[2019-12-24] MEDS: cefTRIAXone 1,000 MG in SYRINGE 1 EACH IV SCH (09:00)
[2019-12-24] MEDS: ASPIRIN EC 81 MG TABLET PO SCH (09:00)
[2019-12-24] MEDS: TERAZOSIN 1 MG CAPSULE PO SCH (09:00)
[2019-12-24] MEDS: PANTOPRAZOLE 40 MG TABLET PO SCH (09:00)
[2019-12-24] MEDS: ASCORBIC ACID 500 MG TABLET PO SCH (09:00)
[2019-12-24] MEDS: POTASSIUM CHLORIDE 10 MEQ TABLET PO SCH (09:00)
[2019-12-24] MEDS: METOPROLOL TARTRATE 25 MG TABLET PO SCH ×2 (09:00→20:52)
[2019-12-24] MEDS: FERROUS SULFATE 325 MG TABLET PO SCH (09:00)
[2019-12-24] MEDS: FUROSEMIDE 40 MG TABLET PO SCH (09:00)
[2019-12-24] MEDS: FOLIC ACID 1 MG TABLET PO SCH (09:00)
[2019-12-24] MEDS: APIXABAN 5 MG TABLET PO SCH ×2 (09:00→20:52)
[2019-12-24] MEDS: SIMVASTATIN 40 MG TABLET PO SCH (20:52)
[2019-12-24] MEDS: CLORAZEPATE 3.75 MG TABLET PO SCH (20:52)
[2019-12-25] MEDS: methylPREDNISolone SOD SUC 40 MG/1 ML VIAL IV SCH ×2 (00:48→21:18)
[2019-12-25] MEDS: ALBUTEROL INHALER 8 GM INH SCH ×2 (06:36→19:00)
[2019-12-25] MEDS: POTASSIUM CHLORIDE 10 MEQ TABLET PO SCH (08:59)
[2019-12-25] MEDS: TERAZOSIN 1 MG CAPSULE PO SCH (08:59)
[2019-12-25] MEDS: MULTIVITAMIN (CENTRUM) TABLET PO SCH (08:59)
[2019-12-25] MEDS: FERROUS SULFATE 325 MG TABLET PO SCH (09:00)
[2019-12-25] MEDS: APIXABAN 5 MG TABLET PO SCH ×2 (09:00→20:52)
[2019-12-25] MEDS: METOPROLOL TARTRATE 25 MG TABLET PO SCH ×2 (09:00→20:52)
[2019-12-25] MEDS: ASPIRIN EC 81 MG TABLET PO SCH (09:00)
[2019-12-25] MEDS: PANTOPRAZOLE 40 MG TABLET PO SCH (09:01)
[2019-12-25] MEDS: VERAPAMIL SR 240 MG TABLET PO SCH (09:01)
[2019-12-25] MEDS: FUROSEMIDE 40 MG TABLET PO SCH (09:01)
[2019-12-25] MEDS: ASCORBIC ACID 500 MG TABLET PO SCH (09:02)
[2019-12-25] MEDS: FOLIC ACID 1 MG TABLET PO SCH (09:02)
[2019-12-25] MEDS: cefTRIAXone 1,000 MG in SYRINGE 1 EACH IV SCH (09:03)
[2019-12-25] MEDS ORDERED: TUBERCULIN SKIN TEST 0.1 ML SYRINGE INTRADERM ONE (15:00)
[2019-12-25] MEDS: SIMVASTATIN 40 MG TABLET PO SCH (20:52)
[2019-12-25] MEDS: CLORAZEPATE 3.75 MG TABLET PO SCH (20:52)
[2019-12-26] MEDS: ALBUTEROL INHALER 8 GM INH SCH ×2 (06:45→20:05)
[2019-12-26] MEDS: methylPREDNISolone SOD SUC 40 MG/1 ML VIAL IV SCH ×2 (08:22→20:05)
[2019-12-26] MEDS: cefTRIAXone 1,000 MG in SYRINGE 1 EACH IV SCH (08:23)
[2019-12-26] MEDS: ASCORBIC ACID 500 MG TABLET PO SCH (08:24)
[2019-12-26] MEDS: METOPROLOL TARTRATE 25 MG TABLET PO SCH ×2 (08:24→20:05)
[2019-12-26] MEDS: FOLIC ACID 1 MG TABLET PO SCH (08:24)
[2019-12-26] MEDS: TERAZOSIN 1 MG CAPSULE PO SCH (08:24)
[2019-12-26] MEDS: VERAPAMIL SR 240 MG TABLET PO SCH (08:25)
[2019-12-26] MEDS: MULTIVITAMIN (CENTRUM) TABLET PO SCH (08:25)
[2019-12-26] MEDS: POTASSIUM CHLORIDE 10 MEQ TABLET PO SCH (08:25)
[2019-12-26] MEDS: FUROSEMIDE 40 MG TABLET PO SCH (08:26)
[2019-12-26] MEDS: FERROUS SULFATE 325 MG TABLET PO SCH (08:26)
[2019-12-26] MEDS: APIXABAN 5 MG TABLET PO SCH ×2 (08:26→20:05)
[2019-12-26] MEDS: ASPIRIN EC 81 MG TABLET PO SCH (08:26)
[2019-12-26] MEDS: PANTOPRAZOLE 40 MG TABLET PO SCH (08:26)
[2019-12-26] MEDS: CLORAZEPATE 3.75 MG TABLET PO SCH (20:05)
[2019-12-26] MEDS: SIMVASTATIN 40 MG TABLET PO SCH (20:05)
[2019-12-27] MEDS: ALBUTEROL INHALER 8 GM INH SCH (09:56)
[2019-12-27] MEDS: ASPIRIN EC 81 MG TABLET PO SCH (09:56)
[2019-12-27] MEDS: MULTIVITAMIN (CENTRUM) TABLET PO SCH (09:56)
[2019-12-27] MEDS: FERROUS SULFATE 325 MG TABLET PO SCH (09:56)
[2019-12-27] MEDS: TERAZOSIN 1 MG CAPSULE PO SCH (09:56)
[2019-12-27] MEDS: APIXABAN 5 MG TABLET PO SCH (09:56)
[2019-12-27] MEDS: FUROSEMIDE 40 MG TABLET PO SCH (09:56)
[2019-12-27] MEDS: FOLIC ACID 1 MG TABLET PO SCH (09:56)
[2019-12-27] MEDS: VERAPAMIL SR 240 MG TABLET PO SCH (09:56)
[2019-12-27] MEDS: POTASSIUM CHLORIDE 10 MEQ TABLET PO SCH (09:56)
[2019-12-27] MEDS: METOPROLOL TARTRATE 25 MG TABLET PO SCH (09:56)
[2019-12-27] MEDS: methylPREDNISolone SOD SUC 40 MG/1 ML VIAL IV SCH (09:57)
[2019-12-27] MEDS: cefTRIAXone 1,000 MG in SYRINGE 1 EACH IV SCH (09:57)
[2019-12-27] MEDS: ASCORBIC ACID 500 MG TABLET PO SCH (09:57)
[2019-12-27] MEDS: PANTOPRAZOLE 40 MG TABLET PO SCH (09:57)
[2019-12-27 11:04] VITALS: BP 169/65
== END 2019-12-27 11:09 | DRG 177 ==
LOC: EDUNIT# → EDBD → N.ED 18:59 → N.EDINP 21:56 → N.2E 23:37 → N.2W 12-17 18:04 → N.ICU 12-22 14:47 → N.2W 12-24 18:45
PROVIDERS: ADMIT Family Medicine; ATTEND Family Medicine

== ENCOUNTER 2020-04-18 07:42 | Inpatient (IN) ==
[2020-04-18 09:06] LABS: Albumin 2.9 G/DL (3.4-5.0); Bilirubin,Total 0.4 MG/DL (0.2-1.0); Calcium 8.5 MG/DL (8.5-10.1); Osmolality,Calculated 288.1 MOS/KG (273-304); Total Protein 6.4 G/DL (6.4-8.3)
[2020-04-18] MEDS ORDERED: ONDANSETRON 4 MG/2 ML VIAL IV STA (09:17)
[2020-04-18] MEDS ORDERED: MORPHINE 4 MG/1 ML VIAL IV STA (09:17)
[2020-04-18 09:46] LABS: INR 1.1; Partial Thromboplastin Time 28.2 SECS (23.9-33.8)
[2020-04-18 09:59] LABS: Basophils % 0.1 % (0.0-0.8); Eosinophils # 0.1 10*3/uL (0.0-0.87); Eosinophils % 0.3 % (0.00-10.9); Hematocrit 42.3 VOL% (42.0-52.0); Immature Granulocytes % 0.9 %; Immature Granulocytes Absolute 0.14 #; Lymphocytes # 0.9 10*3/uL (1.4-4.0); Lymphocytes % 5.6 % (21.2-54.2); Mean Corpuscular HGB Conc 30.3 GM/DL (32-36); Mean Corpuscular Volume 89.8 FL (87-102); Mean Platelet Volume 9.7 FL (9.6-12.0); Monocytes % 6.2 % (1.7-12.7); Neutrophils % 86.9 % (38.7-73.9); Platelet Count 256 T/CUMM (130-400); Red Blood Count 4.71 MC/CUMM (3.8-5.5); White Blood Count 15.4 T/CUMM (4-12)
[2020-04-18 10:02] LABS: Hemoglobin 12.8 GM/DL (14.0-18.0)
[2020-04-18] MEDS ORDERED: ACETAMINOPHEN 325 MG TABLET PO PRN (10:03)
[2020-04-18] MEDS ORDERED: ONDANSETRON 4 MG/2 ML VIAL IV PRN (10:03)
[2020-04-18] MEDS ORDERED: ALBUTEROL 2.5 MG/3 ML NEB RESP TX PRN (10:13)
[2020-04-18 11:04] LABS: Apearance,Urine CLEAR (Clear); Bacteria,Urine Occasional /HPF (Few); Bilirubin,Urine Negative (Negative); Blood, Urine Negative (Negative); Glucose,Urine (UA) Negative (Negative); Hyaline Casts,Urine 1 /LPF (0-3); Ketones,Urine Negative (Negative); Mucus,Urine Occasional /LPF (Occasional); Nitrite,Urine Negative (Negative); Protein,Urine Negative; RBC,Urine 1 /HPF (0-4); Squamous Epithelial Cell,Urine Occasional /HPF (0-10); Urine Color Yellow (Yellow); Urine Specific Gravity 1.018 (1.001-1.035); WBC,Urine <1 /HPF (0-6)
[2020-04-18] MEDS: LEVOFLOXACIN INJ 500 MG in PREMIX 1 EACH IV STA ×2 (12:14→12:15)
[2020-04-18] MEDS ORDERED: ENOXAPARIN 40 MG/0.4 ML SYRINGE SUBCUT SCH (13:00)
[2020-04-18] MEDS ORDERED: HEPARIN DRIP 25,000 UNITS/500 ML PREMIX IV SCH (13:30)
[2020-04-18] MEDS: SODIUM CHLORIDE 0.9% 1,000 ML IV SCH (14:01)
[2020-04-18] MEDS: MORPHINE 4 MG/1 ML VIAL IV PRN ×2 (14:02→22:01)
[2020-04-18] MEDS: ALBUTEROL 2.5 MG/3 ML NEB RESP TX SCH ×2 (14:35→19:28)
[2020-04-18] MEDS: CLORAZEPATE 3.75 MG TABLET PO SCH (21:06)
[2020-04-18] MEDS ORDERED: HEPARIN 5,000 UNIT/1 ML VIAL IV ONE (23:00)
[2020-04-19] MEDS: ALBUTEROL 2.5 MG/3 ML NEB RESP TX SCH ×4 (01:58→20:02)
[2020-04-19] MEDS: SODIUM CHLORIDE 0.9% 1,000 ML IV SCH (06:36)
[2020-04-19 06:40] LABS: Osmolality,Calculated 280.8 MOS/KG (273-304)
[2020-04-19 06:51] LABS: Risk Ratio 1.81; Thyroid Stimulating Hormone 1.26 uIU/ml (0.358-3.74); VLDL CHOLESTEROL 13.8 MG/DL
[2020-04-19 07:06] LABS: Basophils # 0.1 10*3/uL (0.0-0.2); Basophils % 0.7 % (0.0-0.8); Eosinophils # 0.4 10*3/uL (0.0-0.87); Eosinophils % 3.5 % (0.00-10.9); Hemoglobin 11.4 GM/DL (14.0-18.0); Immature Granulocytes % 0.9 %; Immature Granulocytes Absolute 0.09 #; Lymphocytes # 1.1 10*3/uL (1.4-4.0); Lymphocytes % 10.5 % (21.2-54.2); Mean Corpuscular HGB Conc 29.2 GM/DL (32-36); Mean Corpuscular Volume 92.9 FL (87-102); Monocytes % 6.9 % (1.7-12.7); Neutrophils % 77.5 % (38.7-73.9); Platelet Count 218 T/CUMM (130-400); Red Cell Distribution Width 17.2 % (9.3-17.3); White Blood Count 10.1 T/CUMM (4-12)
[2020-04-19] MEDS ORDERED: ALBUTEROL/IPRATROPIUM 3 ML NEB RESP TX STA (07:14)
[2020-04-19] MEDS ORDERED: ceFAZolin 1,000 MG VIAL ONE (08:02)
[2020-04-19] MEDS ORDERED: LEVALBUTEROL 1.25 MG/3 ML NEB RESP TX ONE ×2 (08:49→09:07)
[2020-04-19] MEDS ORDERED: MULTIVITAMIN (CENTRUM) TABLET PO SCH (09:00)
[2020-04-19] MEDS: MULTIVITAMIN (CENTRUM) TABLET PO SCH (09:00)
[2020-04-19] MEDS ORDERED: ASPIRIN EC 81 MG TABLET PO SCH (09:00)
[2020-04-19] MEDS: ASCORBIC ACID 500 MG TABLET PO SCH (09:00)
[2020-04-19] MEDS: FOLIC ACID 1 MG TABLET PO SCH (09:00)
[2020-04-19] MEDS: NON-FORMULARY MEDICATION (Umeclidinium-Vilanterol [Anoro Ellipta] 1 PUFF) INH SCH (09:00)
[2020-04-19] MEDS ORDERED: fentaNYL 100 MCG/2 ML VIAL ONE (09:02)
[2020-04-19] MEDS ORDERED: ONDANSETRON 4 MG/2 ML VIAL ONE (09:02)
[2020-04-19] MEDS ORDERED: LIDOCAINE 2% 5 ML VIAL ONE (09:02)
[2020-04-19] MEDS ORDERED: SEVOFLURANE 1 UNIT/15 MINUTE INH ONE (09:02)
[2020-04-19] MEDS ORDERED: DEXAMETHASONE 4 MG/1 ML VIAL ONE (09:02)
[2020-04-19] MEDS ORDERED: ESMOLOL 100 MG/10 ML VIAL IV ONE (09:02)
[2020-04-19] MEDS ORDERED: PHENYLEPHRINE 1 MG/10 ML SYRINGE IV ONE (09:03)
[2020-04-19] MEDS ORDERED: ROCURONIUM 100 MG/10 ML VIAL IV ONE (09:03)
[2020-04-19] MEDS ORDERED: ETOMIDATE 40 MG/20 ML VIAL IV ONE (09:03)
[2020-04-19] MEDS ORDERED: METOPROLOL TARTRATE 5 MG/5 ML VIAL IV ONE (09:03)
[2020-04-19] MEDS ORDERED: HYDROCORTISONE 100 MG VIAL ONE (09:03)
[2020-04-19] MEDS ORDERED: NEOSTIGMINE 10 MG/10 ML VIAL ONE (09:03)
[2020-04-19] MEDS ORDERED: GLYCOPYRROLATE 0.4 MG/2 ML VIAL ONE (09:03)
[2020-04-19] MEDS: POTASSIUM CHLORIDE 20 MEQ TABLET PO SCH (10:29)
[2020-04-19] MEDS: PARoxetine 20 MG TABLET PO SCH (10:30)
[2020-04-19] MEDS: VERAPAMIL SR 240 MG TABLET PO SCH (10:30)
[2020-04-19] MEDS: TERAZOSIN 1 MG CAPSULE PO SCH (10:30)
[2020-04-19] MEDS: METOPROLOL TARTRATE 25 MG TABLET PO SCH (10:30)
[2020-04-19] MEDS: predniSONE 5 MG TABLET PO SCH (10:30)
[2020-04-19] MEDS: APIXABAN 2.5 MG TABLET PO SCH ×2 (10:30→21:23)
[2020-04-19] MEDS: FUROSEMIDE 40 MG TABLET PO SCH (10:30)
[2020-04-19] MEDS: CLORAZEPATE 3.75 MG TABLET PO SCH (21:23)
[2020-04-20] MEDS: ALBUTEROL 2.5 MG/3 ML NEB RESP TX SCH ×4 (00:16→20:18)
[2020-04-20 06:32] LABS: Basophils % 0.1 % (0.0-0.8); Eosinophils % 0.1 % (0.00-10.9); Hematocrit 35.3 VOL% (42.0-52.0); Hemoglobin 10.5 GM/DL (14.0-18.0); Immature Granulocytes % 0.7 %; Lymphocytes # 0.8 10*3/uL (1.4-4.0); Lymphocytes % 6.3 % (21.2-54.2); Mean Corpuscular HGB Conc 29.7 GM/DL (32-36); Mean Corpuscular Volume 92.7 FL (87-102); Mean Platelet Volume 10.5 FL (9.6-12.0); Monocytes % 6.4 % (1.7-12.7); Neutrophils % 86.4 % (38.7-73.9); Platelet Count 210 T/CUMM (130-400); Red Blood Count 3.81 MC/CUMM (3.8-5.5); Red Cell Distribution Width 16.8 % (9.3-17.3); White Blood Count 13.4 T/CUMM (4-12)
[2020-04-20 06:37] LABS: Calcium 8.3 MG/DL (8.5-10.1); Osmolality,Calculated 286.7 MOS/KG (273-304)
[2020-04-20] MEDS: SODIUM CHLORIDE 0.45% 1,000 ML IV SCH ×2 (09:07→11:25)
[2020-04-20] MEDS: PARoxetine 20 MG TABLET PO SCH (09:07)
[2020-04-20] MEDS: cefTRIAXone 1,000 MG in SYRINGE 1 EACH IV SCH (09:07)
[2020-04-20] MEDS: POTASSIUM CHLORIDE 20 MEQ TABLET PO SCH (09:08)
[2020-04-20] MEDS: APIXABAN 2.5 MG TABLET PO SCH ×2 (09:08→21:12)
[2020-04-20] MEDS: ASCORBIC ACID 500 MG TABLET PO SCH (09:08)
[2020-04-20] MEDS: METOPROLOL TARTRATE 25 MG TABLET PO SCH (09:08)
[2020-04-20] MEDS: TERAZOSIN 1 MG CAPSULE PO SCH (09:08)
[2020-04-20] MEDS: ASPIRIN EC 81 MG TABLET PO SCH (09:08)
[2020-04-20] MEDS: FUROSEMIDE 40 MG TABLET PO SCH (09:08)
[2020-04-20] MEDS: MULTIVITAMIN (CENTRUM) TABLET PO SCH (09:08)
[2020-04-20] MEDS: predniSONE 5 MG TABLET PO SCH (09:08)
[2020-04-20] MEDS: VERAPAMIL SR 240 MG TABLET PO SCH (09:08)
[2020-04-20] MEDS: FOLIC ACID 1 MG TABLET PO SCH (09:08)
[2020-04-20] MEDS: NON-FORMULARY MEDICATION (Umeclidinium-Vilanterol [Anoro Ellipta] 1 PUFF) INH SCH (09:09)
[2020-04-20] MEDS ORDERED: TUBERCULIN SKIN TEST 0.1 ML SYRINGE INTRADERM ONE (09:21)
[2020-04-20] MEDS: SODIUM CHLORIDE 0.9% 1,000 ML IV SCH (15:31)
[2020-04-20] MEDS: CLORAZEPATE 3.75 MG TABLET PO SCH (21:12)
[2020-04-21] MEDS: ALBUTEROL 2.5 MG/3 ML NEB RESP TX SCH ×4 (01:35→20:12)
[2020-04-21] MEDS ORDERED: PANTOPRAZOLE 40 MG VIAL IV ONE (01:47)
[2020-04-21 02:22] LABS: Calcium 8.6 MG/DL (8.5-10.1)
[2020-04-21 02:35] LABS: Basophils # 0.1 10*3/uL (0.0-0.2); Basophils % 0.4 % (0.0-0.8); Eosinophils # 0.1 10*3/uL (0.0-0.87); Eosinophils % 0.5 % (0.00-10.9); Hematocrit 39.7 VOL% (42.0-52.0); Hemoglobin 11.9 GM/DL (14.0-18.0); Immature Granulocytes % 2.4 %; Immature Granulocytes Absolute 0.45 #; Lymphocytes # 2.5 10*3/uL (1.4-4.0); Lymphocytes % 13.6 % (21.2-54.2); Mean Corpuscular Volume 92.3 FL (87-102); Mean Platelet Volume 10.4 FL (9.6-12.0); Monocytes % 7.9 % (1.7-12.7); NRBC # 0.02 10*3/uL; Neutrophils % 75.2 % (38.7-73.9); Platelet Count 299 T/CUMM (130-400); White Blood Count 18.4 T/CUMM (4-12)
[2020-04-21 06:04] LABS: ABG Base Excess -12.6 MMOL/L (-2.5-2.5); ABG HCO3 14.6 MMOL/L (20-26); ABG Oxygen Saturation 88.5 % (95-100); ABG PCO2 32.7 MM HG (35-48); ABG PO2 68.6 MM HG (80-95); ABG TCO2 12.7 MMOL/L (23-27); Allen Test Positive
[2020-04-21 06:47] LABS: Basophils # 0.1 10*3/uL (0.0-0.2); Basophils % 0.4 % (0.0-0.8); Eosinophils % 0.2 % (0.00-10.9); Hematocrit 41.9 VOL% (42.0-52.0); Hemoglobin 12.1 GM/DL (14.0-18.0); Immature Granulocytes % 3.9 %; Immature Granulocytes Absolute 0.78 #; Lymphocytes # 1.6 10*3/uL (1.4-4.0); Lymphocytes % 7.8 % (21.2-54.2); Mean Corpuscular HGB Conc 28.9 GM/DL (32-36); Mean Corpuscular Volume 95.7 FL (87-102); Mean Platelet Volume 10.4 FL (9.6-12.0); Monocytes % 8.4 % (1.7-12.7); NRBC # 0.07 10*3/uL; Neutrophils % 79.3 % (38.7-73.9); Platelet Count 310 T/CUMM (130-400); Red Blood Count 4.38 MC/CUMM (3.8-5.5); White Blood Count 20.1 T/CUMM (4-12)
[2020-04-21 06:57] LABS: Anisocytosis 2+; Band Neutrophils 9 % (0-10); Burr Cells Few; Eosinophils 1 % (0-10); Lymphocytes 12 % (20-55); Macrocytosis 1+; Myelocytes 1 %; Nucleated Red Blood Cells 1 (0-5); Ovalocytes Few; Platelet Estimate Normal; Polychromasia Slight; Segmented Neutrophils 70 % (50-85); Total Cells Counted 100
[2020-04-21] MEDS ORDERED: INSULIN REGULAR 100 UNIT/ML IV ONE (08:11)
[2020-04-21] MEDS ORDERED: DEXTROSE 50% 25 GM/50 ML VIAL IV ONE (08:13)
[2020-04-21] MEDS ORDERED: CALCIUM GLUCONATE 1,000 MG in SODIUM CHLORIDE 0.9% 100 ML IV ONE (08:30)
[2020-04-21] MEDS ORDERED: SODIUM PHOSPHATE ENEMA 133 ML BOTTLE RECTAL ONE (08:56)
[2020-04-21] MEDS: NON-FORMULARY MEDICATION (Umeclidinium-Vilanterol [Anoro Ellipta] 1 PUFF) INH SCH (09:00)
[2020-04-21] MEDS: TERAZOSIN 1 MG CAPSULE PO SCH (09:00)
[2020-04-21] MEDS: APIXABAN 2.5 MG TABLET PO SCH (09:00)
[2020-04-21] MEDS: METOPROLOL TARTRATE 25 MG TABLET PO SCH (09:00)
[2020-04-21] MEDS: FUROSEMIDE 40 MG TABLET PO SCH (09:00)
[2020-04-21] MEDS: ASPIRIN EC 81 MG TABLET PO SCH (09:00)
[2020-04-21] MEDS: PARoxetine 20 MG TABLET PO SCH (09:00)
[2020-04-21] MEDS: FOLIC ACID 1 MG TABLET PO SCH (09:00)
[2020-04-21] MEDS: ASCORBIC ACID 500 MG TABLET PO SCH (09:00)
[2020-04-21] MEDS: VERAPAMIL SR 240 MG TABLET PO SCH (09:00)
[2020-04-21] MEDS: MULTIVITAMIN (CENTRUM) TABLET PO SCH (09:00)
[2020-04-21] MEDS: predniSONE 5 MG TABLET PO SCH (09:00)
[2020-04-21] MEDS: cefTRIAXone 1,000 MG in SYRINGE 1 EACH IV SCH (09:16)
[2020-04-21] MEDS ORDERED: INSULIN REGULAR 100 UNIT/ML SUBCUT ONE (09:42)
[2020-04-21] MEDS ORDERED: PIPERACILLIN/TAZOBACTAM 3,375 MG in SODIUM CHLORIDE 0.9% 100 ML IV SCH (12:00)
[2020-04-21] MEDS ORDERED: SODIUM POLYSTYRENE SULFATE 15 GM/60 ML BOTTLE PO SCH (16:02)
[2020-04-21] MEDS: PIPERACILLIN/TAZOBACTAM 3,375 MG in SODIUM CHLORIDE 0.9% 100 ML IV SCH (16:17)
[2020-04-21] MEDS ORDERED: SODIUM POLYSTYRENE SULFATE 15 GM/60 ML BOTTLE RECTAL ONE (16:22)
[2020-04-21] MEDS ORDERED: SODIUM BICARBONATE 50 MEQ/50 ML VIAL IV ONE ×2 (16:35→18:00)
[2020-04-21] MEDS: methylPREDNISolone SOD SUC 40 MG/1 ML VIAL IV SCH (17:27)
[2020-04-21] MEDS ORDERED: SODIUM BICARBONATE 50 MEQ/50 ML SYRINGE IV ONE (18:00)
[2020-04-21] MEDS: METOPROLOL TARTRATE 5 MG/5 ML VIAL IV SCH (19:19)
[2020-04-21] MEDS: CLORAZEPATE 3.75 MG TABLET PO SCH (20:46)
[2020-04-21] MEDS: SODIUM CHLORIDE 0.9% 1,000 ML IV SCH ×2 (21:45→22:16)
[2020-04-22] MEDS: METOPROLOL TARTRATE 5 MG/5 ML VIAL IV SCH ×5 (01:01→23:16)
[2020-04-22] MEDS: ALBUTEROL 2.5 MG/3 ML NEB RESP TX SCH ×4 (01:04→20:23)
[2020-04-22] MEDS: methylPREDNISolone SOD SUC 40 MG/1 ML VIAL IV SCH ×2 (03:42→16:06)
[2020-04-22] MEDS: PIPERACILLIN/TAZOBACTAM 3,375 MG in SODIUM CHLORIDE 0.9% 100 ML IV SCH (03:44)
[2020-04-22 04:36] LABS: Calcium 7.8 MG/DL (8.5-10.1); Osmolality,Calculated 299.8 MOS/KG (273-304)
[2020-04-22 04:45] LABS: Basophils % 0.1 % (0.0-0.8); Hematocrit 41.3 VOL% (42.0-52.0); Immature Granulocytes % 0.8 %; Immature Granulocytes Absolute 0.13 #; Lymphocytes # 0.4 10*3/uL (1.4-4.0); Lymphocytes % 2.3 % (21.2-54.2); Mean Corpuscular HGB Conc 29.1 GM/DL (32-36); Mean Corpuscular Volume 95.2 FL (87-102); Mean Platelet Volume 11.7 FL (9.6-12.0); Monocytes % 2.5 % (1.7-12.7); NRBC # 0.08 10*3/uL; Neutrophils % 94.3 % (38.7-73.9); Platelet Count 130 T/CUMM (130-400); Red Blood Count 4.34 MC/CUMM (3.8-5.5); White Blood Count 15.7 T/CUMM (4-12)
[2020-04-22 05:01] LABS: Hypochromasia Slight; Lymphocytes 5 % (20-55); Nucleated Red Blood Cells 2 (0-5); Segmented Neutrophils 95 % (50-85); Total Cells Counted 100
[2020-04-22] MEDS ORDERED: INSULIN REGULAR 100 UNIT/ML IV ONE (06:12)
[2020-04-22] MEDS ORDERED: DEXTROSE 50% 25 GM/50 ML VIAL IV ONE (06:12)
[2020-04-22] MEDS ORDERED: SODIUM BICARB INJ 50 MEQ in SODIUM CHLORIDE 0.45% 1,000 ML IV SCH (06:30)
[2020-04-22] MEDS ORDERED: CALCIUM GLUCONATE 1,000 MG in SODIUM CHLORIDE 0.9% 100 ML IV ONE (06:30)
[2020-04-22] MEDS: SODIUM CHLORIDE 0.9% 1,000 ML IV SCH (07:32)
[2020-04-22] MEDS: SODIUM POLYSTYRENE SULFATE 15 GM/60 ML BOTTLE RECTAL SCH ×2 (07:40→13:12)
[2020-04-22 09:00] LABS: Albumin 2.5 G/DL (3.4-5.0); Bilirubin,Direct 0.6 MG/DL (0.0-0.20); Bilirubin,Indirect 0.4 MG/DL (0.0-1.0); Total Protein 6.1 G/DL (6.4-8.3)
[2020-04-22] MEDS: NON-FORMULARY MEDICATION (Umeclidinium-Vilanterol [Anoro Ellipta] 1 PUFF) INH SCH (09:00)
[2020-04-22] MEDS: ASCORBIC ACID 500 MG TABLET PO SCH (09:00)
[2020-04-22] MEDS: VERAPAMIL SR 240 MG TABLET PO SCH (09:00)
[2020-04-22] MEDS: MULTIVITAMIN (CENTRUM) TABLET PO SCH (09:00)
[2020-04-22] MEDS: PARoxetine 20 MG TABLET PO SCH (09:00)
[2020-04-22] MEDS: ASPIRIN EC 81 MG TABLET PO SCH (09:00)
[2020-04-22] MEDS: TERAZOSIN 1 MG CAPSULE PO SCH (09:00)
[2020-04-22] MEDS: FOLIC ACID 1 MG TABLET PO SCH (09:00)
[2020-04-22] MEDS ORDERED: METOPROLOL TARTRATE 5 MG/5 ML VIAL IV SCH (11:16)
[2020-04-22] MEDS: MORPHINE 4 MG/1 ML VIAL IV PRN (16:01)
[2020-04-22] MEDS: SODIUM BICARB INJ 150 MEQ in DEXTROSE 5% 850 ML IV SCH (17:09)
[2020-04-22] MEDS ORDERED: CEFEPIME 1,000 MG in SODIUM CHLORIDE 0.9% 100 ML IV SCH (18:00)
[2020-04-22] MEDS ORDERED: DOCUSATE SODIUM 100 MG CAPSULE PO PRN (20:04)
[2020-04-22] MEDS: CLORAZEPATE 3.75 MG TABLET PO SCH (20:17)
[2020-04-22] MEDS ORDERED: ENOXAPARIN 40 MG/0.4 ML SYRINGE SUBCUT SCH (21:00)
[2020-04-23] MEDS: MORPHINE 4 MG/1 ML VIAL IV PRN ×2 (02:43→08:46)
[2020-04-23] MEDS: ALBUTEROL 2.5 MG/3 ML NEB RESP TX SCH ×2 (02:45→07:19)
[2020-04-23] MEDS: methylPREDNISolone SOD SUC 40 MG/1 ML VIAL IV SCH (04:14)
[2020-04-23] MEDS: SODIUM BICARB INJ 150 MEQ in DEXTROSE 5% 850 ML IV SCH (05:10)
[2020-04-23 06:09] LABS: Basophils % 0.1 % (0.0-0.8); Hematocrit 33.4 VOL% (42.0-52.0); Hemoglobin 10.4 GM/DL (14.0-18.0); Immature Granulocytes % 0.8 %; Immature Granulocytes Absolute 0.14 #; Lymphocytes # 0.4 10*3/uL (1.4-4.0); Lymphocytes % 2.6 % (21.2-54.2); Mean Corpuscular HGB Conc 31.1 GM/DL (32-36); Mean Corpuscular Volume 88.8 FL (87-102); Mean Platelet Volume 10.8 FL (9.6-12.0); Monocytes % 3.4 % (1.7-12.7); NRBC # 0.11 10*3/uL; Neutrophils % 93.1 % (38.7-73.9); Platelet Count 193 T/CUMM (130-400); Red Blood Count 3.76 MC/CUMM (3.8-5.5); White Blood Count 16.5 T/CUMM (4-12)
[2020-04-23] MEDS: METOPROLOL TARTRATE 5 MG/5 ML VIAL IV SCH (06:49)
[2020-04-23 06:50] LABS: Anisocytosis 1+; Band Neutrophils 1 % (0-10); Hypochromasia Slight; Lymphocytes 3 % (20-55); Macrocytosis 1+; Nucleated Red Blood Cells 1 (0-5); Platelet Estimate Normal; Segmented Neutrophils 92 % (50-85); Total Cells Counted 100
[2020-04-23] MEDS: NON-FORMULARY MEDICATION (Umeclidinium-Vilanterol [Anoro Ellipta] 1 PUFF) INH SCH (08:20)
[2020-04-23] MEDS ORDERED: DOCUSATE SODIUM 100 MG/10 ML UDCUP PO SCH (09:00)
[2020-04-23 09:24] LABS: Albumin 2.5 G/DL (3.4-5.0); Bilirubin,Total 1.9 MG/DL (0.2-1.0); Osmolality,Calculated 323.4 MOS/KG (273-304); Total Protein 5.6 G/DL (6.4-8.3)
[2020-04-23] MEDS: MULTIVITAMIN (CENTRUM) TABLET PO SCH (11:04)
[2020-04-23] MEDS: TERAZOSIN 1 MG CAPSULE PO SCH (11:04)
[2020-04-23] MEDS: ASPIRIN EC 81 MG TABLET PO SCH (11:04)
[2020-04-23] MEDS: VERAPAMIL SR 240 MG TABLET PO SCH (11:04)
[2020-04-23] MEDS: FOLIC ACID 1 MG TABLET PO SCH (11:04)
[2020-04-23] MEDS: PARoxetine 20 MG TABLET PO SCH (11:04)
[2020-04-23 11:50] VITALS: BP 150/85
== END 2020-04-23 14:40 | disposition hospice, home (50) | DRG 480 ==
LOC: N.ED 07:42 → N.EDINP 10:03 → N.3E 10:37
PROVIDERS: ADMIT Family Medicine; ATTEND Family Medicine